=== PATIENT | male | born 1940 | race Two or more races ===

== ENCOUNTER 2017-07-20 17:52 | Observation (INO) | payer MEDICARE, BC ==
[2017-07-20] MEDS ORDERED: ACETAMINOPHEN TAB 325 MG TAB PO PRN (18:33)
[2017-07-20] MEDS ORDERED: NALOXONE 0.4 MG/ML 1 ML VIAL IV PRN ×2 (18:33→21:21)
[2017-07-20] MEDS ORDERED: HEPARIN SODIUM,PORCINE 5,000 UNIT/ML 1 ML VIAL IV PRN (18:35)
--- NOTE | 2017-07-20 18:40 | ED ---
General Adult HPI - General Chief complaint: Chest Pain Stated complaint: N Stemi Time Seen by Provider: 07/20/17 17:55 Source: family, EMS, RN notes reviewed, old records reviewed Mode of arrival: EMS Limitations: no limitations - History of Present Illness Initial comments: 77-year-old male presents as transfer from outside hospital for evaluation of A. fib and elevated troponin. Patient was seen by his primary care physician, noted to be in A. fib. By the time he noted to the outside emergency department he was in sinus rhythm. Laboratory studies were obtained and serial cardiac enzymes which revealed a mild elevation in troponin at 0.045. Patient was given aspirin and started on heparin and transferred for cardiology evaluation. Patient has history of schizophrenic, he is not able to contribute much to the history. He does deny current chest pain. No known history of coronary artery disease or arrhythmia. - Related Data Allergies Allergy/AdvReac Type Severity Reaction Status Date / Time No Known Allergies Allergy Verified 07/20/17 18:19 Review of Systems ROS Statement: Those systems with pertinent positive or pertinent negative responses have been documented in the HPI. ROS Other: All systems not noted in ROS Statement are negative. Past Medical History Past Medical History: Diabetes Mellitus, Hyperlipidemia, Renal Disease, Thyroid Disorder Additional Past Medical History / Comment(s): Anemia History of Any Multi-Drug Resistant Organisms: None Reported Past Surgical History: No Surgical Hx Reported Past Psychological History: Schizophrenia Smoking Status: Never smoker Past Alcohol Use History: None Reported Past Drug Use History: None Reported General Exam Limitations: no limitations General appearance: alert, in no apparent distress Head exam: Present: atraumatic, normocephalic Eye exam: Present: normal appearance Neck exam: Present: normal inspection. Absent: tenderness Respiratory exam: Present: normal lung sounds bilaterally. Absent: respiratory distress Cardiovascular Exam: Present: regular rate, normal rhythm GI/Abdominal exam: Present: soft. Absent: distended, tenderness Extremities exam: Present: normal inspection, normal capillary refill. Absent: pedal edema Neurological exam: Present: alert, oriented X3, CN II-XII intact. Absent: motor sensory deficit Psychiatric exam: Present: normal affect, normal mood Skin exam: Present: warm, dry, intact. Absent: cyanosis, diaphoretic Course Vital Signs 07/20/17 17:55 Temperature 97.4 F L Pulse Rate 89 Respiratory 16 Rate Blood Pressure 156/71 O2 Sat by Pulse 98 Oximetry EKG Findings - EKG Comments: EKG Findings:: EKG: Normal sinus rhythm, ROS R prime, rate of 84, FL interval 126, QRS duration 96, QTC 458, no definitive signs of ischemia Medical Decision Making - Medical Decision Making 77-year-old male presenting with A. fib and mildly elevated troponin. No documented atrial fibrillation in the medical record. Patient is in sinus rhythm here. Laboratory studies were reviewed and the patient did have a mild troponin elevation of 0.045. Potassium 4.2, sodium 144, creatinine 2.0 with no known baseline. Chest x-ray was reviewed and was negative. Patient will be continued on heparin, serial cardiac enzymes will be obtained. Patient will be admitted for cardiology evaluation. He is started on 25 mg of metoprolol twice a day. Disposition Clinical Impression: Elevated troponin, Atrial fibrillation Disposition: ADMITTED IP TO THIS HOSP Condition: Stable Is patient prescribed a controlled substance at d/c from ED?: No Referrals: Wild Baez MD [Primary Care Provider] - 1-2 days Decision to Admit Reason: Admit from EC Decision Date: 07/20/17 Decision Time: 18:40
[2017-07-20] MEDS ORDERED: HEPARIN SODIUM,PORCINE/D5W PMX 25,000 UNIT in DEXTROSE/WATER 1 500ML.BAG IV SCH (18:45)
[2017-07-20] MEDS ORDERED: CALCIUM CARBONATE 500 MG CHEWABLE PO PRN (21:21)
[2017-07-20] MEDS ORDERED: MAGNESIUM HYDROXIDE 2,400 MG/10 ML CUP PO PRN (21:21)
[2017-07-20] MEDS ORDERED: ALPRAZolam 0.25 MG TAB PO PRN (21:21)
[2017-07-20] MEDS ORDERED: LACTULOSE 20 GM/30 ML CUP PO PRN (21:21)
[2017-07-20] MEDS ORDERED: ONDANSETRON 4 MG/2 ML VIAL IVP PRN (21:21)
[2017-07-20] MEDS ORDERED: MELATONIN 3 MG TABLET PO PRN (21:21)
[2017-07-20] MEDS: METOPROLOL TARTRATE 25 MG TAB PO SCH (21:38)
[2017-07-21 01:14] LABS: Creatine Kinase MB 1.2 ng/mL (0.0-2.4)
[2017-07-21 01:35] LABS: Troponin I 0.05 ng/mL (0.000-0.034)
[2017-07-21] MEDS: LEVOTHYROXINE 50 MCG TAB PO SCH (06:09)
[2017-07-21 06:44] LABS: Basophils % (A) 0 %; Eosinophils # (A) 0.3 k/uL (0-0.7); Eosinophils % (A) 4 %; HCT 31.7 % (39.0-53.0); HGB 10.4 gm/dL (13.0-17.5); Lymphocytes # (A) 0.7 k/uL (1.0-4.8); Lymphocytes % (A) 12 %; MCH 31.1 pg (25.0-35.0); MCHC 32.8 g/dL (31.0-37.0); MCV 94.7 fL (80.0-100.0); Mean Platelet Volume 7.4; Monocytes # (A) 0.4 k/uL (0-1.0); Monocytes % (A) 7 %; Neutrophils # (A) 4.5 k/uL (1.3-7.7); Neutrophils % (A) 76 %; Platelet Count 216 k/uL (150-450); RBC 3.34 m/uL (4.30-5.90); RDW 13.4 % (11.5-15.5)
[2017-07-21 06:59] LABS: Albumin 3.5 g/dL (3.5-5.0); Calcium 9.3 mg/dL (8.4-10.2); Magnesium 1.8 mg/dL (1.6-2.3); Total Bilirubin 0.3 mg/dL (0.2-1.3); Total Protein 6.1 g/dL (6.3-8.2)
[2017-07-21 07:34] LABS: Creatine Kinase MB 1.2 ng/mL (0.0-2.4)
[2017-07-21 07:46] LABS: Troponin I 0.037 ng/mL (0.000-0.034)
[2017-07-21] MEDS: METOPROLOL TARTRATE 25 MG TAB PO SCH ×2 (08:14→20:23)
[2017-07-21] MEDS: PALIPERIDONE 6 MG TAB.ER.24 PO SCH (08:14)
[2017-07-21] MEDS: FENOFIBRATE 54 MG TAB PO SCH (08:15)
[2017-07-21] MEDS: TRIHEXYPHENIDYL 2 MG TAB PO SCH (08:15)
[2017-07-21 12:16] LABS: Creatine Kinase MB 1.1 ng/mL (0.0-2.4); Troponin I 0.024 ng/mL (0.000-0.034)
--- NOTE | 2017-07-21 15:44 | HP ---
HISTORY AND PHYSICAL DATE OF SERVICE: 07/21/2017 PRESENTING COMPLAINT: Dizzy. HISTORY OF PRESENTING COMPLAINT: This is a pleasant 77-year-old patient of Dr. Baez. Chronic stable medical conditions include hypertension, hyperlipidemia, hypothyroid, bipolar disorder, schizophrenia, chronic kidney disease. The patient for 3 to 4 days has been feeling tired, rundown, dizzy, lightheaded, decreased appetite, and decided to go down to [facility], where he was found to be in atrial fibrillation with rapid ventricular rate. Heart rate was up to the 140s. Patient's troponin was 0.1, 0.025 at 0.45. Patient was put on IV heparin and subsequently was transferred down here to [facility]. Patient subsequently has converted to sinus rhythm. Feels better. No prior history of the same. No chest pain. REVIEW OF SYSTEMS: CONSTITUTIONAL: Tired. HEENT: Decreased hearing. RESPIRATORY: None. CARDIOVASCULAR: As above. GASTROINTESTINAL: None. GENITOURINARY: None. MUSCULOSKELETAL: Arthritic pain in the joints. DERMATOLOGICAL: None. HEMATOLOGICAL: None. LYMPHATICS: None. PSYCHIATRY: None. NEUROLOGICAL: Occasional tremors in the right hand. PAST MEDICAL HISTORY: 1. Hyperlipidemia. 2. Hypertension. 3. Hypothyroid. 4. Tremors. 5. Bipolar disorder. 6. Schizophrenia. 7. Diverticulosis. 8. Osteoarthritis. 9. Hard of hearing. 10.Chronic kidney disease. PAST SURGICAL HISTORY: 1. Hernia repair. 2. Tonsillectomy. 3. Bilateral inguinal hernia repair. SOCIAL HISTORY: Lives alone. 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 No smoking. No alcohol. FAMILY HISTORY: Leukemia. HOME MEDICATIONS: 1. Pravachol 10 mg at bedtime. 2. Synthroid 50 mcg p.o. daily. 3. Tricor 48 mg p.o. daily. 4. Trihexyphenidyl 5 mg p.o. daily. 5. Invega 6 mg p.o. daily. ALLERGIES: NONE. PHYSICAL EXAMINATION: Temperature 98.2, pulse 60, respiration 16, blood pressure 120/73, pulse ox 98% on room air. GENERAL APPEARANCE: Average build. Sitting up, comfortable. EYES: Pupils equal. Conjunctivae normal. HEENT: External appearance of nose and ears normal. Oral cavity normal. NECK: JVD not raised. Mass not palpable. RESPIRATORY: Effort normal. LUNGS: Fair air entry. CARDIOVASCULAR: First and second sounds normal. No edema. ABDOMEN: Soft, non-tender. Liver and spleen not palpable. LYMPHATIC: No lymph node palpable in neck or axillae. PSYCHIATRY: Alert and oriented x3. Mood and affect low. NEUROLOGICAL: Pupils equal. Cranial nerves grossly intact. Power and sensation grossly intact. INVESTIGATIONS: EKG initially showed atrial fibrillation with rapid ventricular rate. Now patient is in sinus rhythm. Patient's BUN 34, creatinine 2.0. White count 16, hemoglobin 10.4. Troponin 0.05, 0.037, 0.024. ASSESSMENT: 1. New-onset atrial fibrillation with rapid ventricular rate. Patient now reverted to sinus rhythm. 2. Chronic kidney disease, stage III, probably from nephrosclerosis. 3. Normocytic anemia, likely secondary to chronic kidney disease. 4. Essential hypertension. 5. Hyperlipidemia. 6. Hypothyroidism. 7. Bipolar disorder. 8. Schizophrenia. 9. Diverticulosis, asymptomatic. 10.Primary osteoarthritis. 11.IV heparin monitoring. PLAN: Home medications are resumed. Patient is on IV heparin. Cardiology was consulted. Will check patient's iron studies. Care was discussed with the patient. Will order a 2- D echocardiogram. MMODL / IJN: [id number] /
[2017-07-21] MEDS: HEPARIN SODIUM,PORCINE 5,000 UNIT/ML 1 ML VIAL SQ SCH (20:23)
[2017-07-21] MEDS ORDERED: PRAVASTATIN SODIUM 20 MG TAB PO SCH (21:00)
--- NOTE | 2017-07-21 21:33 | CONS ---
CONSULTATION Martín Nixon is a 77-year-old pleasant patient with a history of schizophrenia. Apparently this gentleman was transferred from [facility]. I reviewed the record at [place], including the EKG and rhythm strips. There is no evidence of any atrial fibrillation. Apparently, the ER physician saw atrial fibrillation and transferred to the patient because the rate was fast. I have not seen any rhythm strips, which showed a rapid heart rate. The patient is in a sinus rhythm here at this time and even all the rhythm strips in [facility] that were sent are in sinus mechanism as is the EKG. The patient is not a good historian. Denies any chest pain or shortness of breath. He feels well. Appears to be quite comfortable and asymptomatic. PAST MEDICAL HISTORY: 1. History of hypothyroidism. 2. Bipolar disorder. 3. Hypertension. 4. Hyperlipidemia. 5. No evidence of any prior myocardial infarction or CVA. MEDICATIONS: At home include Pravachol, Synthroid, Tricor and he is also takes Invega. The patient is status post tonsillectomy and inguinal hernia repair. EXAMINATION: Blood pressure is 128/70, pulse rate is 64 per minute and regular. HEENT: Unremarkable. Fundus was not examined by me. NECK: Supple. There is no JVD. I do not hear a carotid bruit. Heart exam reveals S1, S2 heard normally. No significant murmurs. Lungs are clear. Abdomen is soft, nontender. Lower extremities reveal normal pulses. No edema. Central nervous system is normal. EKG revealed sinus mechanism with a right ventricular conduction delay. No acute changes. LABORATORY DATA: Does not reveal any significant abnormalities. Troponins are 0.05 and 0.03, which I do not believe is significant. I am recommending a TSH level. I am recommending that we discontinue IV heparin, place him on subcu heparin. Increase activity. Patient can be discharged and echo performed as an outpatient. No other workup is necessary at this time, but we will continue to monitor him with telemetry till tomorrow morning. Thank you very much for the consult. CRISTIANA / ROBERTA: [id number] /
[2017-07-22] MEDS: LEVOTHYROXINE 50 MCG TAB PO SCH (05:39)
[2017-07-22] MEDS: METOPROLOL TARTRATE 25 MG TAB PO SCH (07:32)
[2017-07-22] MEDS: PALIPERIDONE 6 MG TAB.ER.24 PO SCH (07:32)
[2017-07-22] MEDS: TRIHEXYPHENIDYL 2 MG TAB PO SCH (07:32)
[2017-07-22] MEDS: FENOFIBRATE 54 MG TAB PO SCH (07:33)
[2017-07-22] MEDS: HEPARIN SODIUM,PORCINE 5,000 UNIT/ML 1 ML VIAL SQ SCH (09:37)
[2017-07-22 10:14] LABS: Calcium 9.9 mg/dL (8.4-10.2); Potassium 4.6 mmol/L (3.5-5.1)
[2017-07-22 11:42] VITALS: BP 127/64; PULSE 58; RESP 14; TEMP 98
--- NOTE | 2017-07-22 14:26 | ECHOF ---
Referral Reason:af MEASUREMENTS -------- HEIGHT: 165.1 cm WEIGHT: 61.2 kg BP: IVSd: 1.0 cm (0.6 - 1.1) LVIDd: 3.9 cm (3.9 - 5.3) LVPWd: 0.7 cm (0.6 - 1.1) IVSs: 1.6 cm LVIDs: 3.2 cm LVPWs: 1.5 cm Ao Diam: 3.4 cm (2.0 - 3.7) AV Cusp: 1.9 cm (1.5 - 2.6) LA Diam: 3.2 cm (2.7 - 3.8) MV EXCURSION: 23.601 mm (> 18.000) MV EF SLOPE: 235 mm/s (70 - 150) EPSS: 1.0 cm MV E Wilson: 0.83 m/s MV DecT: 211 ms MV A Wilson: 0.58 m/s MV E/A Ratio: 1.42 AR PHT: 284 ms RAP: 5.00 mmHg RVSP: 29.66 mmHg FINDINGS -------- Sinus rhythm. This was a technically good study. The left ventricular size is normal. Left ventricular wall thickness is normal. Overall left vent ricular systolic function is normal with, an EF between 55 - 60 %. The right ventricle is normal in size and function. The left atrium is normal in size. The right atrium is normal in size. The aortic valve is trileaflet, and appears structurally normal. No aortic stenosis or regurgitation. Trace amount of aortic regurgitation. The mitral valve leaflets are mildly thickened. Nenb-jm-mnwufrzx mitral regurgitation is present , predominately a posteriorly directed jet. Mild tricuspid regurgitation present. The right ventricular systolic pressure, as measured by Doppl er, is 29.66mmHg. Pulmonic valve appears structurally normal. The aortic root size is normal. The pericardium is normal. CONCLUSIONS -------- 1. Sinus rhythm. 2. This was a technically good study. 3. The left ventricular size is normal. 4. Left ventricular wall thickness is normal. 5. Overall left ventricular systolic function is normal with, an EF between 55 - 60 %. 6. The right ventricle is normal in size and function. 7. The left atrium is normal in size. 8. The right atrium is normal in size. 9. The aortic valve is trileaflet, and appears structurally normal. No aortic stenosis or regurgitati on. 10. Trace amount of aortic regurgitation. 11. The mitral valve leaflets are mildly thickened. 12. Kswd-jp-sjfthkwr mitral regurgitation is present. 13. , predominately a posteriorly directed jet. 14. Mild tricuspid regurgitation present. 15. The right ventricular systolic pressure, as measured by Doppler, is 29.66mmHg. 16. Pulmonic valve appears structurally normal. 17. The aortic root size is normal. 18. The pericardium is normal. TOY DEPARTMENT MANAGER: Maria Elena Hassan RDCS
--- NOTE | 2017-07-22 17:37 | DS ---
DISCHARGE SUMMARY DATE OF ADMISSION: July 20, 2017. DATE OF DISCHARGE: July 22, 2017. FINAL DIAGNOSES: 1. Paroxysmal atrial fibrillation, short-lived, back into sinus rhythm. 2. Chronic kidney disease stage 3 from nephrosclerosis. 3. Normocytic anemia likely secondary to chronic kidney disease. 4. Essential hypertension. 5. Hyperlipidemia. 6. Hypothyroidism. 7. Bipolar disorder, chronic. 8. Schizophrenia, chronic. 9. Diverticulosis colonic. Asymptomatic. 10.Primary osteoarthritis. 11.IV heparin monitoring. HOSPITAL COURSE: This patient is sent in from [facility] after the patient was dizzy, lightheaded, found to be in atrial fibrillation, rapid ventricular rate. Small troponin leak. The patient when got here went back into sinus rhythm. Seen by Dr. Julisa Paredes. Decision was made not to anticoagulate because of the patient reverting to sinus rhythm. 2D echo showed preserved LV function. The patient's TSH came back normal. The patient's BUN and creatinine is 31/1.80. Lungs are clear. Cardiovascular 1st and second sounds normal. DISCHARGE MEDICATIONS: 1. Tricor 48 mg a day. 2. Synthroid 50 mcg a day. 3. Invega 6 mg p.o. daily. 4. Pravachol 10 mg q.h.s. 6. 5. Trihexyphenidyl 5 mg p.o. daily. 6. Lopressor 25 p.o. b.i.d. Follow up with Dr. Julisa Paredes in 2 weeks, Dr. Baez in [address] Baez. MMODL / CHEYENNEN: [id number] /
== END 2017-07-22 13:05 | disposition home or self-care (01) ==
LOC: EC 17:52 → 6SEL 18:33
PROVIDERS: ADMIT Hospitalist; ATTEND Hospitalist
DX: I48.0 Paroxysmal atrial fibrillation (principal); I12.9 Hypertensive chronic kidney disease with stage 1 through stage 4 chronic kidney disease, or unspecified chronic kidney disease; N18.3 Chronic kidney disease, stage 3 (moderate); R77.8 Other specified abnormalities of plasma proteins; D63.1 Anemia in chronic kidney disease; F31.9 Bipolar disorder, unspecified; F20.9 Schizophrenia, unspecified; E78.5 Hyperlipidemia, unspecified; E03.9 Hypothyroidism, unspecified; R25.1 Tremor, unspecified; K57.90 Diverticulosis of intestine, part unspecified, without perforation or abscess without bleeding; M19.91 Primary osteoarthritis, unspecified site; H91.90 Unspecified hearing loss, unspecified ear; Z79.890 Hormone replacement therapy; Z79.899 Other long term (current) drug therapy; Z80.6 Family history of leukemia; Z86.39 Personal history of other endocrine, nutritional and metabolic disease
CPT/HCPCS: 99285 ×2; 96365 ×2; 96366 ×4; 96376 ×2; 96372; 93005; 93306; 80053; 80048; 84443; 82550; 82553; 83735; 84484; 85025; 85730; G0378 ×3; J1644 ×2

== ENCOUNTER → 2019-01-22 | Outpatient (CLI) | payer MEDICARE, BC ==
--- NOTE | 2019-01-22 14:54 | MR ---
EXAMINATION TYPE: MR abdomen wo/w con DATE OF EXAM: 01/22/2019 COMPARISON: None HISTORY: Renal mass, Renal Insufficiency CONTRAST: Standard multiplanar, multisequence MRI departmental protocol utilizing 6.5 mL intravenous Gadavist g adolinium contrast. FINDINGS: There is a complex 5.4 x 4.9 x 5.0 cm right lower pole renal mass that exhibits solid components and areas of cystic necrosis. There is avid enhancement of the solid components. This mass has mass effec t on the inferior collecting system of the right kidney. The right renal vein is grossly unremarkable . Additionally there are numerous bilateral renal cysts that do not exhibit enhancement and T2 hyperi ntense. These are likely acquired cysts secondary to the known renal disease. No hydronephrosis of ei ther kidney. The most complex cyst on the left has multiple thin internal septations that do have min imal enhancement. This measures 2.2 x 2.6 x 2.9 cm in the upper pole. There is colonic interposition of the liver. The liver demonstrates no evidence of signal dropout to indicate hepatic steatosis. There is a 4 mm cyst in the posterior right hepatic lobe on T2 axial nonf at sat series 501 image 23 no does not exhibit enhancement. Another punctate nonenhancing cysts as se en on postcontrast series 701 image 386 portal vein appears unremarkable. Gallbladder is partially co ntracted. The spleen, adrenal glands, and bowel appear unremarkable. There are multiple 2-3 mm nonenhancing cys tic lesions in the pancreatic head and body. No dilation of the main pancreatic duct Abdominal aorta is unremarkable. IMPRESSION: 1. Complex 5.4 cm right lower pole renal mass that should be considered renal cell carcinoma until pr oven otherwise. Urology consultation has already been performed. 2. Innumerable bilateral renal cystic lesions, likely acquired from chronic kidney disease. One of th jailyn on the left is slightly complex with multiple thin enhancing septations. Six-month follow-up ultr asound is recommended for this left renal lesion. 3. 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 Annual surveillance is recommended with MR CEBALLOS.
== END | disposition home or self-care (01) ==
LOC: RADMRIMAIN 12:27
PROVIDERS: ATTEND Urology
DX: N28.89 Other specified disorders of kidney and ureter (principal); N28.1 Cyst of kidney, acquired; K86.89 Other specified diseases of pancreas
CPT/HCPCS: 74183; A9585

== ENCOUNTER → 2019-09-08 | Outpatient (CLI) | payer MEDICARE, BC ==
--- NOTE | 2019-09-08 16:58 | MR ---
EXAMINATION TYPE: MR kidney wo/w con DATE OF EXAM: 09/08/2019 COMPARISON: 01/22/2019 HISTORY: 79-year-old male N28.1 Renal cyst. Prior surgery. TECHNIQUE: Multiplanar, multisequence images of the abdomen were obtained before and after administra tion of 6.5 mL intravenous Gadavist gadolinium contrast. FINDINGS: Heart normal size without pericardial effusion. Lung bases clear without pleural effusion. 7 mm cyst posterior right liver lobe. Opposed phase T1-weighted sequences show no evidence for fatty infiltration. Portal venous system is patent. No biliary ductal dilatation. Gallbladder, adrenal glands, and spleen appear within normal limits. 1 cm cystic lesion along the superior pancreatic neck, coronal image 16. This measured 9 mm, previous ly. Innumerable bilateral renal cysts of varying sizes, largest in the posterior upper to mid pole of the left kidney is complex with multiple thin internal septations measuring up to 3.2 cm craniocaudal by 3.0 cm wide by 2.8 cm AP (as measured on coronal and axial T2 series). This previously measured 3.1 x 2.8 x 2.5 cm on 01/22/2019). No significant thickened septal or nodular enhancement. An additional 1.2 cm minimally complex cyst anterior mid right kidney measures 1.2 cm and contains a thin internal septation. Largest simple cyst is present left laterally measuring up to 2.0 cm. There is curvilinear low signal along the lateral lower pole of the right kidney suggesting resection site of the previous lower pole mass seen on 01/22/2019. No suspicious residual enhancement is seen h ere. No upper abdominal lymphadenopathy, ascites fluid, or gross bowel abnormality. IMPRESSION: 1. Interval resection of the previous right lower pole renal mass. There is some artifact relating to surgical change here. No residual abnormal enhancement. 2. The complex septated cyst at the upper to mid pole of the left kidney currently measures 3.2 x 3.0 x 2.8 cm (versus 3.1 x 2.8 x 2.5 cm on 01/22/2019). Minimal interval increase in size. No suspicious nodular or thickened septal enhancement at this time. Continued follow-up is recommended. 3. Additional innumerable bilateral renal cysts of varying sizes. 4. A 1 cm cyst along the superior pancreatic neck previously measured 9 mm. This can also continue to be reassessed at follow-up.
== END ==
LOC: RADMRIMAIN 13:26
PROVIDERS: ATTEND Urology
DX: N28.89 Other specified disorders of kidney and ureter (principal); N28.1 Cyst of kidney, acquired
CPT/HCPCS: 74183; A9585

== ENCOUNTER → 2020-11-05 | Outpatient (CLI) | payer MEDICARE, BC ==
--- NOTE | 2020-11-06 05:41 | MR ---
EXAMINATION TYPE: MR kidney wo/w con DATE OF EXAM: 11/05/2020 COMPARISON: 09/08/2019 HISTORY: Left Renal Cyst CONTRAST: Standard multiplanar, multisequence MRI departmental protocol utilizing 6ml mL intravenous Gadavist g adolinium contrast. There are multiple cysts in both kidneys. The largest is in the upper pole of the left kidney and reid sures 2.8 cm. There is no hydronephrosis. Ureters are not dilated. There is no sign of perinephric fl uid. There is no retroperitoneal adenopathy. There is no evidence of adrenal mass. There is normal en hancement of both kidneys. There is mild renal atrophy. There is no evidence of solid renal mass. The re is no pathologic enhancement. There is no evidence of ascites. There is 10 mm cystic area in the superior aspect of the body of the pancreas without change. IMPRESSION: Multiple renal cysts without change. No suspicious renal mass. Stable pancreatic cyst. No renal solid mass or obstruction.
== END | disposition home or self-care (01) ==
LOC: RADMRIMAIN 14:46
PROVIDERS: ATTEND Urology
DX: N28.1 Cyst of kidney, acquired (principal); K86.2 Cyst of pancreas
CPT/HCPCS: 74183; A9585

== ENCOUNTER 2021-12-01 13:29 | Inpatient (IN) | payer MEDICARE, BC ==
[2021-12-01] MEDS ORDERED: ASPIRIN 81 MG PO STA (13:40)
[2021-12-01] MEDS ORDERED: DILTIAZEM DRIP BOLUS FROM BAG 1 MG SOLN IV ONE (13:40)
[2021-12-01] MEDS ORDERED: DILTIAZEM 125 MG in SODIUM CHLORIDE 0.9% 100 ML IV SCH (13:45)
[2021-12-01] MEDS ORDERED: HEPARIN SODIUM 1,000 UN/ML (10ML VL) IV ONE (13:55)
[2021-12-01] MEDS ORDERED: HEPARIN SODIUM 1,000 UN/ML (10ML VL) IV PRN (13:55)
--- NOTE | 2021-12-01 14:01 | ED ---
General Adult HPI - General Chief complaint: Chest Pain Stated complaint: A-FIB Time Seen by Provider: 12/01/21 13:31 Source: patient, EMS, RN notes reviewed Mode of arrival: EMS Limitations: no limitations - History of Present Illness Initial comments: 81-year-old male presents emergency department via EMS for evaluation of new onset atrial fibrillation. Patient went to the PCP for regular checkup. Patient has no signs last few days she's had some palpitations, recent is her. Patient denies any associated pain. Patient has no history of A. fib. Patient denies any current headache dizziness no recent falls denies any blood thinners no abdominal pain that she does feel short of breath at times, mild weakness. - Related Data Home Medications Medication Instructions Recorded Confirmed Fenofibrate Nanocrystallized 48 mg PO DAILY 07/20/17 07/20/17 [Tricor] Levothyroxine Sodium [Synthroid] 50 mcg PO DAILY 07/20/17 07/20/17 Paliperidone [Invega] 6 mg PO DAILY 07/20/17 07/20/17 Pravastatin Sodium [Pravachol] 10 mg PO HS 07/20/17 07/20/17 Trihexyphenidyl HCl 5 mg PO DAILY 07/20/17 07/20/17 Previous Rx's Medication Instructions Recorded Metoprolol Tartrate [Lopressor] 25 mg PO BID #60 tab 07/22/17 Allergies Allergy/AdvReac Type Severity Reaction Status Date / Time No Known Allergies Allergy Verified 12/01/21 13:42 Review of Systems ROS Statement: Those systems with pertinent positive or pertinent negative responses have been documented in the HPI. ROS Other: All systems not noted in ROS Statement are negative. Past Medical History Past Medical History: Hyperlipidemia, Hypertension, Pneumonia, Renal Disease, Thyroid Disorder Additional Past Medical History / Comment(s): rt side dominant, tremors, "heart rate up at times", beginnings of cataracats. bipolar, scizophrenia, diverticular disease, arthrits, telida. 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 History of Any Multi-Drug Resistant Organisms: None Reported Past Surgical History: Hernia Repair, Tonsillectomy Additional Past Surgical History / Comment(s): austyn inguinal hernia repair Past Anesthesia/Blood Transfusion Reactions: No Reported Reaction Past Psychological History: Bipolar, Schizophrenia Smoking Status: Never smoker Past Alcohol Use History: None Reported Past Drug Use History: None Reported - Past Family History Father Family Medical History: Cancer Additional Family Medical History / Comment(s): leukemia Mother Family Medical History: Diabetes Mellitus General Exam Limitations: no limitations General appearance: alert, in no apparent distress Head exam: Present: atraumatic, normocephalic, normal inspection Eye exam: Present: normal appearance, PERRL, EOMI. Absent: scleral icterus, conjunctival injection, periorbital swelling ENT exam: Present: normal exam, mucous membranes moist Neck exam: Present: normal inspection. Absent: tenderness, meningismus, lymphadenopathy Respiratory exam: Present: normal lung sounds bilaterally. Absent: respiratory distress, wheezes, rales, rhonchi, stridor Cardiovascular Exam: Present: tachycardia, irregular rhythm, normal heart sounds. Absent: regular rate, normal rhythm, systolic murmur, diastolic murmur, rubs, gallop, clicks Neurological exam: Present: alert Skin exam: Present: warm, dry, intact, normal color. Absent: rash Course Vital Signs 12/01/21 13:39 Temperature 97.9 F Pulse Rate 158 H Respiratory 18 Rate Blood Pressure 138/93 O2 Sat by Pulse 96 Oximetry Medical Decision Making - Medical Decision Making 81-year-old female presented for new-onset A. fib ablation patient's found to be in A. fib RVR. Patient was started on Cardizem bolus, infusion along with heparin. Patient has not had any recent injuries no rectal bleeding. Patient will be admitted for cardiology evaluation, further treatment and monitoring. Disposition Clinical Impression: Atrial fibrillation with RVR Disposition: ADMITTED IP TO THIS HOSP Condition: Fair Referrals: None,Stated [Primary Care Provider] - 1-2 days Time of Disposition: 14:04
[2021-12-01] MEDS ORDERED: NITROGLYCERIN SL TABS 0.4 MG TAB SUBLINGUAL PRN (14:04)
[2021-12-01 14:13] LABS: Basophils % (A) 1 %; Eosinophils # (A) 0.1 k/uL (0-0.7); Eosinophils % (A) 3 %; HCT 34.2 % (39.0-53.0); HGB 11.8 gm/dL (13.0-17.5); Lymphocytes # (A) 0.8 k/uL (1.0-4.8); Lymphocytes % (A) 15 %; MCH 32.5 pg (25.0-35.0); MCHC 34.6 g/dL (31.0-37.0); MCV 93.9 fL (80.0-100.0); Mean Platelet Volume 7.4; Monocytes # (A) 0.3 k/uL (0-1.0); Monocytes % (A) 6 %; Neutrophils # (A) 4.1 k/uL (1.3-7.7); Neutrophils % (A) 74 %; Platelet Count 237 k/uL (150-450); RBC 3.64 m/uL (4.30-5.90); RDW 12.6 % (11.5-15.5); WBC 5.5 k/uL (3.8-10.6)
[2021-12-01 14:33] LABS: Albumin 4.1 g/dL (3.5-5.0); Calcium 9.4 mg/dL (8.4-10.2); Magnesium 1.9 mg/dL (1.6-2.3); Potassium 4.3 mmol/L (3.5-5.1); Total Bilirubin 0.5 mg/dL (0.2-1.3); Total Protein 6.9 g/dL (6.3-8.2)
[2021-12-01 14:37] LABS: INR 1.2 (<1.2); Prothrombin Time 12.2 sec (9.0-12.0)
--- NOTE | 2021-12-01 14:42 | XR ---
EXAMINATION TYPE: XR chest 2V DATE OF EXAM: 12/01/2021 2:37 PM COMPARISON: None TECHNIQUE: XR chest 2V Frontal and lateral views of the chest. CLINICAL INDICATION:Male, 81 years old with history of dysrhythmia; FINDINGS: Lungs/Pleura: There is no evidence of pleural effusion, focal consolidation, or pneumothorax. Senesc ent parenchymal changes. Pulmonary vascularity: Unremarkable. Heart/mediastinum: Cardiomediastinal silhouette is unremarkable. Musculoskeletal: No acute osseous pathology. IMPRESSION: No acute cardiopulmonary disease/process.
[2021-12-01] MEDS: HEPARIN SOD,PORK IN 0.45% NACL 25,000 UNIT in 0.45% NACL 1 250ML.BAG IV SCH (15:15)
[2021-12-01 15:21] LABS: Partial Thromboplastin Time 20.7 sec (22.0-30.0)
--- NOTE | 2021-12-01 20:20 | P.HPIM ---
History of Present Illness H&P Date: 12/01/21 Chief Complaint: Chest tightness Patient is a 81-year-old male with a known history of hypertension, hyperlipidemia, history of renal mass s/p surgery, hypothyroidism and bipo lar/schizophrenia was brought to the hospital due to complaints of chest pain. Patient states that he developed left retrosternal chest tightness and pain across the chest associated with shortness of breath today morning. Patient has been having symptoms of heart racing of the past on and off. Patient went to PCP for regular checkup. Patient was found to have atrial fibrillation and was sent to ER. Otherwise patient denied any headache. No dizziness or lightheadedness. No recent falls. No leg swelling. 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 Further details not known at this time. No prior cardiac catheterization history. Laboratory data showed WBC 5.4 hemoglobin 11.8 and platelets 237 INR 1.2 Sodium 141 potassium 4.3 chloride 106 BUN 38 and creatinine 2.31 Troponin 0.012, 0.027 and 0.042 Liver enzymes are not elevated EKG showed atrial fibrillation with rapid regular rate heart rate 142 Chest x-ray showed no acute cardiopulmonary process. Review of Systems Constitutional: Patient denies any fever or chills . Does have generalized weakness. Abdomen: Patient denied any nausea or vomiting or abd. pain Cardiovascular: Patient complains of chest tightness across the chest. Associated shortness of breath and palpitations. No leg swelling. Respiratory: patient denied any cough . no sputum production. Positive for shortness of breath Neurologic: Patient denied any numbness or tingling headache. Musculoskeletal: Patient denies any complaints of joint swelling or deformity. Skin: Negative Psychiatric: Negative Endocrine: No heat or cold intolerance. No recent weight gain. Genitourinary: No dysuria or hematuria. All other 14 point ROS negative except the above Past Medical History Past Medical History: Atrial Fibrillation, Hyperlipidemia, Hypertension, Pneumonia, Renal Disease, Thyroid Disorder Additional Past Medical History / Comment(s): rt side dominant, tremors, "heart rate up at times", beginnings of cataracats. bipolar, scizophrenia, diverticular disease, arthrits, [place]. pt stated he ahs ahd a pne vaccine in past,development writer unable to verify date of vaccine at time of this admit. History of Any Multi-Drug Resistant Organisms: None Reported Past Surgical History: Hernia Repair, Tonsillectomy Additional Past Surgical History / Comment(s): austyn inguinal hernia repair Past Anesthesia/Blood Transfusion Reactions: No Reported Reaction Smoking Status: Never smoker - Past Family History Father Family Medical History: Cancer Additional Family Medical History / Comment(s): leukemia Mother Family Medical History: Diabetes Mellitus Medications and Allergies Home Medications Medication Instructions Recorded Confirmed Type Fenofibrate Nanocrystallized 48 mg PO DAILY 07/20/17 12/01/21 History [Tricor] Levothyroxine Sodium [Synthroid] 50 mcg PO DAILY 07/20/17 12/01/21 History Pravastatin Sodium [Pravachol] 10 mg PO HS 07/20/17 12/01/21 History Trihexyphenidyl HCl 5 mg PO BID 07/20/17 12/01/21 History Paliperidone IM [Invega Sustenna] 234 mg IM QMONTHLY 12/01/21 12/01/21 History Paliperidone [Invega] 3 mg PO DAILY 12/01/21 12/01/21 History Allergies Allergy/AdvReac Type Severity Reaction Status Date / Time No Known Allergies Allergy Verified 12/01/21 14:58 Physical Exam Vitals: Vital Signs Temp Pulse Pulse Resp BP BP Pulse Ox 12/01/21 16:45 98.3 F 88 16 100/63 98 12/01/21 16:10 89 18 109/67 96 12/01/21 13:39 97.9 F 158 H 18 138/93 96 Intake and Output 12/01/21 12/01/21 12/01/21 06:59 14:59 22:59 Other: Weight 135 kg 55 kg PHYSICAL EXAMINATION: Patient is lying in the bed comfortably, no acute distress, awake alert and oriented. Able to communicate slowly.. HEENT: Normocephalic. Neck is supple. Pupils reactive. Nostrils clear. Oral cavity is moist. Neck reveals no JVD, carotid bruits, or thyromegaly. CHEST EXAMINATION: Trachea is central. Symmetrical expansion. Lung ingram clear to auscultation and percussion. CARDIAC: Normal S1, S2 with no gallops. No murmurs. Irregular Seelig rhythm. ABDOMEN: Soft. Bowel sounds present. Nontender. No organomegaly. No abdominal bruits. Extremities: reveal no edema. No clubbing or cyanosis Neurologically awake, alert, oriented x3 with well-coordinated movements. No gross focal deficits noted. Able to move all his extremities while in bed. Skin: No rash or skin lesions. Psychiatric: Coperative. Nonsuicidal, Musculoskeletal: No joint swelling or deformity. Results CBC & Chem 7: 12/01/21 13:51 12/01/21 13:51 Labs: Abnormal Lab Results - Last 24 Hours (Table) 12/01/21 12/01/21 12/01/21 Range/Units 13:51 13:51 13:51 RBC 3.64 L (4.30-5.90) m/uL Hgb 11.8 L (13.0-17.5) gm/dL Hct 34.2 L (39.0-53.0) % Lymphocytes # 0.8 L (1.0-4.8) k/uL PT 12.2 H (9.0-12.0) sec INR 1.2 H (<1.2) APTT 20.7 L (22.0-30.0) sec BUN 38 H (9-20) mg/dL Creatinine 2.31 H (0.66-1.25) mg/dL Thrombosis Risk Factor Assmnt - DVT/VTE Prophylaxis DVT/VTE Prophylaxis: Pharmacologic Prophylaxis ordered - Choose All That Apply Any of the Below Risk Factors Present?: No Other Risk Factors: Yes Each Risk Factor Represents 3 Points: Age 75 years or older Other congenital or acquired thrombophilia - If yes, enter type in comment: No Thrombosis Risk Factor Assessment Total Risk Factor Score: 3 Thrombosis Risk Factor Assessment Level: Moderate Risk Assessment and Plan Assessment: New onset atrial fibrillation Chest tightness and shortness of breath. Elevated troponin level. Possible NSTEMI cannot be excluded. No prior history of cardiac catheterization. Acute kidney injury with creatinine level 2.31 with possible underlying CKD stage III. Baseline creatinine not known Hypertension Hypothyroidism Hyperlipidemia History of renal mass status post surgery several years ago Bipolar/schizophrenia Osteoarthritis DVT prophylaxis patient is already on heparin drip Plan: Patient will be continued on telemetry monitoring. Monitor serial EKG and troponin x3. Continue with heparin drip and Cardizem drip for heart rate control. TSH level was ordered. Continue with home medications including levothyroxine and statins. Follow-up closely. Discussed with his niece at bedside in detail. Time with Patient: Greater than 30
[2021-12-01] MEDS: TRIHEXYPHENIDYL 2 MG TAB PO SCH (20:53)
[2021-12-01] MEDS: PRAVASTATIN SODIUM 20 MG TAB PO SCH (20:53)
[2021-12-02] MEDS: LEVOTHYROXINE 50 MCG TAB PO SCH (06:41)
[2021-12-02 07:22] LABS: African American GFR (CKD) 29 (>60 ml/min/1.73 sqM); Anion Gap 7 mmol/L; Blood Urea Nitrogen 41 mg/dL (9-20); Calcium 8.6 mg/dL (8.4-10.2); Carbon Dioxide 24 mmol/L (22-30); Chloride 109 mmol/L (98-107); Glucose 101 mg/dL (74-99); Non-African American GFR(CKD) 25 (>60 ml/min/1.73 sqM); Potassium 4.3 mmol/L (3.5-5.1); Sodium 140 mmol/L (137-145)
[2021-12-02 07:54] LABS: Basophils % (A) 1 %; Eosinophils # (A) 0.2 k/uL (0-0.7); Eosinophils % (A) 5 %; HGB 10.4 gm/dL (13.0-17.5); Lymphocytes # (A) 0.9 k/uL (1.0-4.8); Lymphocytes % (A) 24 %; MCHC 33.5 g/dL (31.0-37.0); MCV 95.5 fL (80.0-100.0); Mean Platelet Volume 7.8; Monocytes # (A) 0.3 k/uL (0-1.0); Monocytes % (A) 8 %; Neutrophils # (A) 2.3 k/uL (1.3-7.7); Neutrophils % (A) 59 %; Platelet Count 218 k/uL (150-450); RBC 3.24 m/uL (4.30-5.90); RDW 13.1 % (11.5-15.5); WBC 3.9 k/uL (3.8-10.6)
[2021-12-02 08:07] LABS: INR 1.2 (<1.2); Prothrombin Time 12.8 sec (9.0-12.0)
[2021-12-02] MEDS ORDERED: ASPIRIN 325 MG TAB PO SCH (09:00)
[2021-12-02] MEDS: TRIHEXYPHENIDYL 2 MG TAB PO SCH ×2 (10:22→20:15)
[2021-12-02] MEDS: METOPROLOL TARTRATE 12.5 MG TAB PO SCH ×2 (10:22→20:15)
[2021-12-02 10:54] LABS: HDL Cholesterol 61.2 mg/dL (40.00-60.00); Triglycerides 40.5 mg/dL (0.00-149.00)
[2021-12-02 11:06] LABS: Chol/HDL Ratio 2.12 Ratio; LDL Cholesterol,Direct Reflex 53.3 mg/dL (0.00-129.00)
[2021-12-02] MEDS: PALIPERIDONE 3 MG TAB.ER.24 PO SCH (11:16)
[2021-12-02] MEDS: FENOFIBRATE 54 MG TAB PO SCH (11:17)
--- NOTE | 2021-12-02 12:09 | P.CRDCN ---
History of Present Illness History of present illness: This is Dr. Monroy dictating an H/P on this patient The patient was interviewed and examined IMPRESSION / ASSESSMENT: Paroxysmal symptomatic atrial fibrillation, no syncope Back in sinus rhythm Dyslipidemia and hypertriglyceridemia Possible mild Sick Sinus Syndrome PLAN: Start low-dose metoprolol tartrate 2.5 mg by mouth twice a day Avoid antiarrhythmic drug therapy I will discuss the issue of anticoagulation long-term with his niece was with him in the room when I examined him HPI 81-year-old male patient who has been treated for psychiatric conditions Presented with shortness of breath dizziness possible mild chest discomfort Agent is unable to give a history but when I questioned him carefully he did have the above-mentioned symptoms He feels great now When he was admitted he had A. fib with RVR He is back in sinus rhythm now ROS: No fever chills or rigors, no cough, phlegm or expectoration, no nausea, vomiting or diarrhea, no hematuria, dysuria, no musculoskeletal complaints, no strokes or seizures, no skin lesions. EXAMINATION: REVIEW OF LABS, ECG & MEDICAL DATA His medications include fenofibrate, levothyroxine him a Pravachol and other psychiatric medications Previously he was on metoprolol 25 mg twice daily Twelve-lead EKG in sinus rhythm shows sinus mechanism 62 beats a minute Right bundle branch block pattern normal QT interval normal ST segments Twelve-lead EKG during atrial fibrillation shows heart rates of 143 beats a minute Past Medical History Past Medical History: Atrial Fibrillation, Hyperlipidemia, Hypertension, Pneumonia, Renal Disease, Thyroid Disorder Additional Past Medical History / Comment(s): rt side dominant, tremors, "heart rate up at times", beginnings of cataracats. bipolar, scizophrenia, diverticular disease, arthrits, [place]. pt stated he ahs ahd a pne vaccine in past,card writer hand unable to verify date of vaccine at time of this admit. History of Any Multi-Drug Resistant Organisms: None Reported Past Surgical History: Hernia Repair, Tonsillectomy Additional Past Surgical History / Comment(s): austyn inguinal hernia repair Past Anesthesia/Blood Transfusion Reactions: No Reported Reaction Smoking Status: Never smoker - Past Family History Father Family Medical History: Cancer Additional Family Medical History / Comment(s): leukemia Mother Family Medical History: Diabetes Mellitus Medications and Allergies Home Medications Medication Instructions Recorded Confirmed Type Fenofibrate Nanocrystallized 48 mg PO DAILY 06/01/18 10/13/22 History [Tricor] Levothyroxine Sodium [Synthroid] 50 mcg PO DAILY 07/20/17 12/01/21 History Pravastatin Sodium [Pravachol] 10 mg PO HS 07/20/17 12/01/21 History Trihexyphenidyl HCl 5 mg PO BID 07/20/17 12/01/21 History Paliperidone IM [Invega Sustenna] 234 mg IM QMONTHLY 12/01/21 12/01/21 History Paliperidone [Invega] 3 mg PO DAILY 12/01/21 12/01/21 History Allergies Allergy/AdvReac Type Severity Reaction Status Date / Time No Known Allergies Allergy Verified 12/01/21 14:58 Physical Exam Vitals: Vital Signs Temp Pulse Pulse Resp BP BP Pulse Ox 12/02/21 11:18 98.4 F 72 17 135/74 97 12/02/21 08:00 98.1 F 72 17 119/64 95 12/02/21 04:30 97.9 F 63 16 117/62 97 12/01/21 23:10 98.1 F 67 17 100/56 97 12/01/21 19:55 98 F 68 16 98/53 98 12/01/21 16:45 98.3 F 88 16 100/63 98 12/01/21 16:10 89 18 109/67 96 12/01/21 13:39 97.9 F 158 H 18 138/93 96 Intake and Output 12/01/21 12/02/21 12/02/21 22:59 06:59 14:59 Intake Total 82.673 65.163 Output Total 250 350 250 Balance -167.327 -350 -184.837 Intake: Intake, IV Titration 82.673 65.163 Amount Diltiazem 125 mg In 20.667 Sodium Chloride 0.9% 100 ml @ 5 MG/HR 5 mls/hr IV .Q24H MATHEW Rx#:[id number] Heparin Sod,Pork in 0.45% 62.006 65.163 NaCl 25,000 unit In 0.45 % NaCl 1 250ml.bag @ 7. 408 UNITS/KG/HR 10.001 mls/hr IV .Q24H MATHEW Rx#: [id number] Output: Urine 250 350 250 Other: Voiding Method Urinal Urinal Urinal Weight 55 kg Results 12/02/21 06:29 12/02/21 06:29 Cardiac Enzymes 12/01/21 12/01/21 12/01/21 Range/Units 13:51 13:51 17:09 AST 25 (17-59) U/L Troponin I <0.012 0.027 (0.000-0.034) ng/mL 12/01/21 Range/Units 19:48 AST (17-59) U/L Troponin I 0.042 H* (0.000-0.034) ng/mL Coagulation 12/01/21 12/01/21 12/02/21 Range/Units 13:51 19:48 06:29 PT 12.2 H 12.8 H (9.0-12.0) sec APTT 20.7 L 153.1 H* 76.0 H (22.0-30.0) sec Lipids 12/02/21 Range/Units 06:29 Triglycerides 40.50 (0.00-149.00) mg/dL Cholesterol 130.00 (0.00-200.00) mg/dL HDL Cholesterol 61.20 H (40.00-60.00) mg/dL Cholesterol/HDL Ratio 2.12 Ratio CBC 12/01/21 12/02/21 Range/Units 13:51 06:29 WBC 5.5 3.9 (3.8-10.6) k/uL RBC 3.64 L 3.24 L (4.30-5.90) m/uL Hgb 11.8 L 10.4 L (13.0-17.5) gm/dL Hct 34.2 L 31.0 L (39.0-53.0) % Plt Count 237 218 (150-450) k/uL Comprehensive Metabolic Panel 12/01/21 12/02/21 12/02/21 Range/Units 13:51 06:29 06:29 Sodium 141 Cancelled 140 (137-145) mmol/L Potassium 4.3 Cancelled 4.3 (3.5-5.1) mmol/L Chloride 106 Cancelled 109 H (98-107) mmol/L Carbon Dioxide 22 Cancelled 24 (22-30) mmol/L BUN 38 H Cancelled 41 H (9-20) mg/dL Creatinine 2.31 H Cancelled 2.37 H (0.66-1.25) mg/dL Glucose 96 Cancelled 101 H (74-99) mg/dL Calcium 9.4 Cancelled 8.6 (8.4-10.2) mg/dL AST 25 (17-59) U/L ALT 18 (4-49) U/L Alkaline Phosphatase 44 (38-126) U/L Total Protein 6.9 (6.3-8.2) g/dL Albumin 4.1 (3.5-5.0) g/dL Current Medications Generic Name Dose Route Start Last Admin Trade Name Freq PRN Reason Stop Dose Admin Fenofibrate 54 mg 12/02/21 09:00 12/02/21 11:17 Fenofibrate 54 Mg Tab PO 54 mg DAILY MATHEW Administration Heparin Sodium (Porcine) 0 unit 12/01/21 13:55 Heparin Sodium 1,000 Un/Ml (10ml Vl) IV PER PROTOCOL PRN Low PTT Protocol Heparin Sodium/Sodium Chloride 250 mls @ 10.001 mls/hr 12/01/21 14:00 12/02/21 09:30 25,000 unit/ Sodium Chloride IV 2.93 units/kg/hr .Q24H MATHEW 3.951 mls/hr Titration Protocol 7.408 UNITS/KG/HR Levothyroxine Sodium 50 mcg 12/02/21 06:30 12/02/21 06:41 Levothyroxine 50 Mcg Tab PO 50 mcg DAILY@0630 MATHEW Administration Metoprolol Tartrate 12.5 mg 12/02/21 10:00 12/02/21 10:22 Metoprolol Tartrate 12.5 Mg Tab PO 12.5 mg BID MATHEW Administration Nitroglycerin 0.4 mg 12/01/21 14:04 Nitroglycerin Sl Tabs 0.4 Mg Tab SUBLINGUAL Q5M PRN Chest Pain Paliperidone 3 mg 12/02/21 10:00 12/02/21 11:16 Paliperidone 3 Mg Tab.Er.24 PO 3 mg DAILY MATHEW Administration Pravastatin Sodium 10 mg 12/01/21 21:00 12/01/21 20:53 Pravastatin Sodium 20 Mg Tab PO 10 mg HS MATHEW Administration Trihexyphenidyl HCl 5 mg 12/01/21 21:00 12/02/21 10:22 Trihexyphenidyl 2 Mg Tab PO 5 mg BID MATHEW Administration Intake and Output 12/01/21 12/02/21 12/02/21 22:59 06:59 14:59 Intake Total 82.673 65.163 Output Total 250 350 250 Balance -167.327 -350 -184.837 Intake: Intake, IV Titration 82.673 65.163 Amount Diltiazem 125 mg In 20.667 Sodium Chloride 0.9% 100 ml @ 5 MG/HR 5 mls/hr IV .Q24H MATHEW Rx#:[id number] Heparin Sod,Pork in 0.45% 62.006 65.163 NaCl 25,000 unit In 0.45 % NaCl 1 250ml.bag @ 7. 408 UNITS/KG/HR 10.001 mls/hr IV .Q24H MATHEW Rx#: [id number] Output: Urine 250 350 250 Other: Voiding Method Urinal Urinal Urinal Weight 55 kg 12/02/21 06:29 12/02/21 06:29
--- NOTE | 2021-12-02 13:19 | CA ---
Transthoracic Echo Report Name: Martín Nixon Age: 81 Gender: M : 1940 Exam Date: 12/02/2021 08:59 Exam Location: Given Echo Ht (in): 65 Wt (lb): 121 Ordering Physician: Aditya Lucero Attending/Referring Phys: [id number], Jazmine Medical Insurance Claims Specialist Alexa Avalos RDCS Procedure CPT: Indications: afib Cardiac Hx: Technical Quality: Contrast 1: Total Dose (mL): Contrast 2: Total Dose (mL): MEASUREMENTS (Male / Female) Normal Values 2D ECHO LV Diastolic Diameter PLAX 4.2 cm 4.2 - 5.9 / 3.9 - 5.3 cm LV Systolic Diameter PLAX 2.6 cm IVS Diastolic Thickness 0.9 cm 0.6 - 1.0 / 0.6 - 0.9 cm LVPW Diastolic Thickness 0.9 cm 0.6 - 1.0 / 0.6 - 0.9 cm LV Relative Wall Thickness 0.4 RV Internal Dim ED PLAX 2.7 cm LA Systolic Diameter LX 3.1 cm 3.0 - 4.0 / 2.7 - 3.8 cm M-MODE Aortic Root Diameter MM 2.8 cm LA Systolic Diameter MM 3.1 cm LA Ao Ratio MM 1.1 MV E Point Septal Separation 0.8 cm AV Cusp Separation MM 1.7 cm DOPPLER MV Area PHT 3.8 cm??? Mitral E Point Velocity 56.6 cm/s Mitral A Point Velocity 51.2 cm/s Mitral E to A Ratio 1.1 MV Deceleration Time 197.4 ms MV E' Velocity 10.7 cm/s Mitral E to MV E' Ratio 5.3 TR Peak Velocity 244.9 cm/s TR Peak Gradient 24.0 mmHg Right Ventricular Systolic Press 29.0 mmHg FINDINGS Left Ventricle Normal left ventricular size, wall thickness, systolic function with no obvious regional wall motion abnormalities. Left ventricular ejection fraction is estimated at 50-55%. Right Ventricle The right ventricle is normal in size and function. Right Atrium The right atrium is normal in size. Left Atrium The left atrium is normal in size. Mitral Valve Structurally normal mitral valve without significant stenosis or prolapse. There is mild mitral regurgitation. Aortic Valve Structurally normal aortic valve without significant sclerosis or stenosis. There is no aortic regurgitation. Tricuspid Valve Structurally normal tricuspid valve without significant stenosis. Pulmonary artery systolic pressure is normal. Pulmonic Valve Structurally normal pulmonic valve without significant stenosis. There is no pulmonic regurgitation. Pericardium Normal pericardium without effusion. Aorta Normal aortic root dimension. CONCLUSIONS Left ventricular ejection fraction 50-55% Mild mitral regurgitation Normal RVSP Previewed by: Dr. Jc Snyder DO (Electronically Signed) Final Date: 02 December 2021 13:18
--- NOTE | 2021-12-02 15:53 | P.PN ---
Subjective Progress Note Date: 12/02/21 Patient is a 81-year-old male with a known history of hypertension, hyperlipidemia, history of renal mass s/p surgery, hypothyroidism and bipolar/schizophrenia was brought to the hospital due to complaints of chest pain. Patient states that he developed left retrosternal chest tightness and pain across the chest associated with shortness of breath today morning. Patient has been having symptoms of heart racing of the past on and off. Patient went to PCP for regular checkup. Patient was found to have atrial fibrillation and was sent to ER. Otherwise patient denied any headache. No dizziness or lightheadedness. No recent falls. No leg swelling. 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 Further details not known at this time. No prior cardiac catheterization history. Laboratory data showed WBC 5.4 hemoglobin 11.8 and platelets 237 INR 1.2 Sodium 141 potassium 4.3 chloride 106 BUN 38 and creatinine 2.31 Troponin 0.012, 0.027 and 0.042 Liver enzymes are not elevated EKG showed atrial fibrillation with rapid regular rate heart rate 142 Chest x-ray showed no acute cardiopulmonary process. 12/02/2021 Patient is seen and evaluated in follow-up this morning being followed by cardiology and patient has been on Cardizem drip although discontinued and patient was started on metoprolol. Patient continues on IV heparin and will need to discuss with cardiology about possible anticoagulation. 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 Patient reports he lives by himself. 2-D echo was also ordered and pending at this time. Kidney functions remain elevated and recommend repeat labs in the morning. Patient is afebrile denies chest pain or shortness of breath. Patient denies any palpitations. Patient reports to tolerating diet with no reports of nausea or vomiting noted. Review of systems: Constitutional: No reports of fatigue, fever, or chills Cardiovascular: No reports of chest pain or palpitations Respiratory: No reports of shortness of breath or cough GI: No reports of nausea, vomiting, or diarrhea : No reports of dysuria or retention Neurovascular: No reports of weakness or numbness All medications have been reviewed Active Medications Fenofibrate (Fenofibrate 54 Mg Tab) 54 mg PO DAILY [facility] Last Admin: 12/02/21 11:17 Dose: 54 mg Heparin Sodium (Porcine) (Heparin Sodium 1,000 Un/Ml (10ml Vl)) 0 unit IV PER PROTOCOL PRN; Protocol PRN Reason: Low PTT Heparin Sodium/Sodium Chloride (25,000 unit/ Sodium Chloride) 250 mls @ 10.001 mls/hr IV .Q24H [facility]; Protocol Last Titration: 12/02/21 09:30 Dose: 2.93 units/kg/hr, 3.951 mls/hr Levothyroxine Sodium (Levothyroxine 50 Mcg Tab) 50 mcg PO DAILY@0630 [facility] Last Admin: 12/02/21 06:41 Dose: 50 mcg Metoprolol Tartrate (Metoprolol Tartrate 12.5 Mg Tab) 12.5 mg PO BID [facility] Last Admin: 12/02/21 10:22 Dose: 12.5 mg Nitroglycerin (Nitroglycerin Sl Tabs 0.4 Mg Tab) 0.4 mg SUBLINGUAL Q5M PRN PRN Reason: Chest Pain Paliperidone (Paliperidone 3 Mg Tab.Er.24) 3 mg PO DAILY [facility] Last Admin: 12/02/21 11:16 Dose: 3 mg Pravastatin Sodium (Pravastatin Sodium 20 Mg Tab) 10 mg PO HS [facility] Last Admin: 12/01/21 20:53 Dose: 10 mg Trihexyphenidyl HCl (Trihexyphenidyl 2 Mg Tab) 5 mg PO BID [facility] Last Admin: 12/02/21 10:22 Dose: 5 mg PHYSICAL EXAMINATION: Patient is lying in the bed comfortably, no acute distress, awake alert and oriented. Able to communicate slowly.. HEENT: Normocephalic. Neck is supple. Pupils reactive. Nostrils clear. Oral cavity is moist. Neck reveals no JVD, carotid bruits, or thyromegaly. CHEST EXAMINATION: Trachea is central. Symmetrical expansion. Lung ingram clear to auscultation and percussion. CARDIAC: Normal S1, S2 with no gallops. No murmurs. Irregular Seelig rhythm. ABDOMEN: Soft. Bowel sounds present. Nontender. No organomegaly. No abdominal bruits. Extremities: reveal no edema. No clubbing or cyanosis Neurologically awake, alert, oriented x3 with well-coordinated movements. No gross focal deficits noted. Able to move all his extremities while in bed. Skin: No rash or skin lesions. Psychiatric: Cooperative. Non-suicidal, Musculoskeletal: No joint swelling or deformity. Assessment: New onset atrial fibrillation with RVR Chest tightness and shortness of breath. Resolved Elevated troponin level. Possible NSTEMI cannot be excluded. No prior history of cardiac catheterization. Acute kidney injury with creatinine level 2.31 with possible underlying CKD stage III. Baseline creatinine not known Hypertension Hypothyroidism Hyperlipidemia History of renal mass status post surgery several years ago Bipolar/schizophrenia Osteoarthritis DVT prophylaxis patient is already on heparin drip Plan: Patient will be continued on telemetry monitoring. Monitor serial EKG and troponin x3. 2-D echo shows normal LV size with no obvious regional wall motion abnormalities and EF is estimated at 50-55%. Mild mitral regurgitation.. Cardiology following and Cardizem drip was discontinued and patient was started on metoprolol. Patient continues on heparin and will need to discuss further with cardiology about anticoagulation. Discussed with case management about possibly verifying anticoagulation coverage and she discuss with his pharmacy who provides all of his medications in blister packs and are not available to distribute this over the weekend. Patient is not medically clear at this time and cardiology recommending closely observing on telemetry monitoring with follow-up in the a.m. Will follow-up with labs and continue to monitor closely. Prognosis is guarded at this time. The impression and plan of care has been dictated by Ann Saenz, Nurse Practitioner as directed. Dr. Srikanth MD I have performed a history and examination and MDM of this patient, discussed the same with the dictator, and agree with the dictator's assessment and plan as written ,documented as a scribe. Based on total visit time, I have performed more than 50% of the visit. Objective - Vital Signs Vital signs: Vital Signs Temp 98.1 F 12/02/21 08:00 Pulse 82 12/02/21 08:00 Resp 17 12/02/21 08:00 BP 119/64 12/02/21 08:00 Pulse Ox 95 12/02/21 08:00 FiO2 Intake & Output 12/01/21 12/02/21 12/02/21 18:59 06:59 18:59 Intake Total 82.673 65.163 Output Total 600 250 Balance -517.327 -184.837 Weight 55 kg Intake: Intake, IV Titration 82.673 65.163 Amount Diltiazem 125 mg In 20.667 Sodium Chloride 0.9% 100 ml @ 5 MG/HR 5 mls/hr IV .Q24H [facility] Rx#:[id number] Heparin Sod,Pork in 0.45% 62.006 65.163 NaCl 25,000 unit In 0.45 % NaCl 1 250ml.bag @ 7. 408 UNITS/KG/HR 10.001 mls/hr IV .Q24H [facility] Rx#: [id number] Output: Urine 600 250 Other: Voiding Method Urinal - Labs CBC & Chem 7: 12/02/21 06:29 12/02/21 06:29 Labs: Abnormal Lab Results - Last 24 Hours (Table) 12/01/21 12/01/21 12/01/21 Range/Units 13:51 13:51 13:51 RBC 3.64 L (4.30-5.90) m/uL Hgb 11.8 L (13.0-17.5) gm/dL Hct 34.2 L (39.0-53.0) % Lymphocytes # 0.8 L (1.0-4.8) k/uL PT 12.2 H (9.0-12.0) sec INR 1.2 H (<1.2) APTT 20.7 L (22.0-30.0) sec Chloride (98-107) mmol/L BUN 38 H (9-20) mg/dL Creatinine 2.31 H (0.66-1.25) mg/dL Glucose (74-99) mg/dL Troponin I (0.000-0.034) ng/mL 12/01/21 12/01/21 12/02/21 Range/Units 19:48 19:48 06:29 RBC 3.24 L (4.30-5.90) m/uL Hgb 10.4 L (13.0-17.5) gm/dL Hct 31.0 L (39.0-53.0) % Lymphocytes # 0.9 L (1.0-4.8) k/uL PT (9.0-12.0) sec INR (<1.2) APTT 153.1 H* (22.0-30.0) sec Chloride (98-107) mmol/L BUN (9-20) mg/dL Creatinine (0.66-1.25) mg/dL Glucose (74-99) mg/dL Troponin I 0.042 H* (0.000-0.034) ng/mL 12/02/21 12/02/21 Range/Units 06:29 06:29 RBC (4.30-5.90) m/uL Hgb (13.0-17.5) gm/dL Hct (39.0-53.0) % Lymphocytes # (1.0-4.8) k/uL PT 12.8 H (9.0-12.0) sec INR 1.2 H (<1.2) APTT 76.0 H (22.0-30.0) sec Chloride 109 H (98-107) mmol/L BUN 41 H (9-20) mg/dL Creatinine 2.37 H (0.66-1.25) mg/dL Glucose 101 H (74-99) mg/dL Troponin I (0.000-0.034) ng/mL
[2021-12-02] MEDS: HEPARIN SOD,PORK IN 0.45% NACL 25,000 UNIT in 0.45% NACL 1 250ML.BAG IV SCH (17:07)
[2021-12-02] MEDS: PRAVASTATIN SODIUM 20 MG TAB PO SCH (20:15)
[2021-12-03] MEDS: LEVOTHYROXINE 50 MCG TAB PO SCH (06:50)
[2021-12-03] MEDS: HEPARIN SOD,PORK IN 0.45% NACL 25,000 UNIT in 0.45% NACL 1 250ML.BAG IV SCH (06:50)
[2021-12-03] MEDS: FENOFIBRATE 54 MG TAB PO SCH (09:46)
[2021-12-03] MEDS: PALIPERIDONE 3 MG TAB.ER.24 PO SCH (09:46)
[2021-12-03] MEDS: METOPROLOL TARTRATE 12.5 MG TAB PO SCH ×2 (09:46→21:00)
[2021-12-03] MEDS: TRIHEXYPHENIDYL 2 MG TAB PO SCH ×2 (09:46→21:00)
[2021-12-03 11:04] LABS: Basophils % (A) 0 %; Eosinophils # (A) 0.1 k/uL (0-0.7); Eosinophils % (A) 2 %; HCT 31.8 % (39.0-53.0); HGB 10.7 gm/dL (13.0-17.5); Lymphocytes # (A) 0.6 k/uL (1.0-4.8); Lymphocytes % (A) 11 %; MCH 32.3 pg (25.0-35.0); MCHC 33.8 g/dL (31.0-37.0); MCV 95.5 fL (80.0-100.0); Mean Platelet Volume 7.4; Monocytes # (A) 0.4 k/uL (0-1.0); Monocytes % (A) 7 %; Neutrophils # (A) 4.5 k/uL (1.3-7.7); Neutrophils % (A) 79 %; Platelet Count 223 k/uL (150-450); RBC 3.33 m/uL (4.30-5.90); RDW 12.7 % (11.5-15.5); WBC 5.8 k/uL (3.8-10.6)
[2021-12-03 11:19] LABS: Calcium 8.8 mg/dL (8.4-10.2); Potassium 4.1 mmol/L (3.5-5.1)
--- NOTE | 2021-12-03 12:52 | P.PN ---
Subjective Progress Note Date: 12/03/21 The patient is a 81-year-old male who presented to the hospital with chest discomfort. He was found to be in A. fib with RVR. He was started on Cardizem drip and spontaneously converted back to sinus mechanism. ACS workup was unremarkable. The patient was interviewed and examined lying comfortably in bed. He denies any recurrence of the symptoms. Overall he states he feels well. GENERAL: Well-appearing, well-nourished and in no acute distress. NECK: Supple without JVD or thyromegaly. LUNGS: Breath sounds clear to auscultation bilaterally. Respiration equal and unlabored. No wheezes, rales or rhonchi. HEART: Regular rate and rhythm without murmurs, rubs or gallops. S1 and S2 heard. EXTREMITIES: Normal range of motion, no edema. No clubbing or cyanosis. Peripheral pulses intact and strong. VITALS: Blood pressure 143/64, pulse 83, respiratory rate 18, SpO2 95% on room air, temp 97.9F TELEMETRY: Sinus rhythm overnight LABS: W BC 5.8, hemoglobin 10.7, hematocrit 31.8, platelet 223, sodium 143, potassium 4.1 Lionel BUN 32, creatinine 2.13 IMPRESSION: Paroxysmal atrial fibrillation Dyslipidemia Mild sick sinus syndrome Chronic kidney disease History of psychiatric conditions PLAN: Continue current medication regimen including low-dose beta derick Consideration for anticoagulation, however fall risk assessment needs to be considered Further recommendations to be based on clinical course I am dictating on behalf of Dr Dickson Monroy's history/physical and assessment/plan. Objective - Vital Signs Vital signs: Vital Signs Temp 97.9 F 12/03/21 11:40 Pulse 83 12/03/21 11:40 Resp 18 12/03/21 11:40 BP 143/64 12/03/21 11:40 Pulse Ox 95 12/03/21 11:40 FiO2 Intake & Output 12/02/21 12/03/21 12/03/21 18:59 06:59 18:59 Intake Total 101.051 81.536 Output Total 850 1275 Balance -748.949 -1193.464 Intake: Intake, IV Titration 101.051 81.536 Amount Heparin Sod,Pork in 0.45% 101.051 81.536 NaCl 25,000 unit In 0.45 % NaCl 1 250ml.bag @ 7. 408 UNITS/KG/HR 10.001 mls/hr IV .Q24H [facility] Rx#: [id number] Output: Urine 850 1275 Other: Voiding Method Urinal Urinal Urinal # Voids 1 # Bowel Movements 1 - Labs CBC & Chem 7: 12/03/21 10:01 12/03/21 10:01 Labs: Abnormal Lab Results - Last 24 Hours (Table) 12/02/21 12/03/21 12/03/21 Range/Units 15:32 00:51 10:01 RBC 3.33 L (4.30-5.90) m/uL Hgb 10.7 L (13.0-17.5) gm/dL Hct 31.8 L (39.0-53.0) % Lymphocytes # 0.6 L (1.0-4.8) k/uL APTT 38.2 H 52.2 H (22.0-30.0) sec Chloride (98-107) mmol/L BUN (9-20) mg/dL Creatinine (0.66-1.25) mg/dL 12/03/21 Range/Units 10:01 RBC (4.30-5.90) m/uL Hgb (13.0-17.5) gm/dL Hct (39.0-53.0) % Lymphocytes # (1.0-4.8) k/uL APTT (22.0-30.0) sec Chloride 108 H (98-107) mmol/L BUN 32 H (9-20) mg/dL Creatinine 2.13 H (0.66-1.25) mg/dL
[2021-12-03] MEDS: APIXABAN 5 MG TAB PO SCH (21:00)
[2021-12-03] MEDS: PRAVASTATIN SODIUM 20 MG TAB PO SCH (21:00)
[2021-12-04] MEDS: LEVOTHYROXINE 50 MCG TAB PO SCH (06:21)
[2021-12-04] MEDS: APIXABAN 5 MG TAB PO SCH ×2 (09:00→20:16)
[2021-12-04] MEDS: PALIPERIDONE 3 MG TAB.ER.24 PO SCH (09:00)
[2021-12-04] MEDS: METOPROLOL TARTRATE 12.5 MG TAB PO SCH ×2 (09:00→20:16)
[2021-12-04] MEDS: FENOFIBRATE 54 MG TAB PO SCH (09:00)
[2021-12-04] MEDS: TRIHEXYPHENIDYL 2 MG TAB PO SCH ×2 (09:00→20:16)
--- NOTE | 2021-12-04 12:25 | P.PN ---
Subjective Progress Note Date: 12/04/21 The patient is a 81-year-old male who presented to the hospital with chest discomfort. He was found to be in A. fib with RVR. He was started on Cardizem drip and spontaneously converted back to sinus mechanism. The patient was interviewed and examined lying comfortably in bed. He denies any recurrence of the symptoms. Overall he states he feels well. GENERAL: Well-appearing, well-nourished and in no acute distress. NECK: Supple without JVD or thyromegaly. LUNGS: Breath sounds clear to auscultation bilaterally. Respiration equal and unlabored. No wheezes, rales or rhonchi. HEART: Regular rate and rhythm without murmurs, rubs or gallops. S1 and S2 heard. EXTREMITIES: Normal range of motion, no edema. No clubbing or cyanosis. Peripheral pulses intact and strong. VITALS: Blood pressure 143/64, pulse 83, respiratory rate 18, SpO2 95% on room air, temp 97.9F TELEMETRY: Sinus rhythm overnight LABS: WBC 5.8, hemoglobin 10.7, hematocrit 31.8, platelet 223, sodium 143 IMPRESSION: Paroxysmal atrial fibrillation Dyslipidemia Mild sick sinus syndrome Chronic kidney disease History of psychiatric conditions PLAN: Continue current medication regimen including low-dose beta derick and ant icoagulation No further recommendations from the cardiac standpoint I am dictating on behalf of Dr Dickson Monroy's history/physical and assessment/plan. Objective - Vital Signs Vital signs: Vital Signs Temp 97.8 F 12/04/21 09:02 Pulse 70 12/04/21 09:02 Resp 16 12/04/21 09:02 BP 155/74 12/04/21 09:02 Pulse Ox 98 12/04/21 09:02 FiO2 Intake & Output 12/03/21 12/04/21 12/04/21 18:59 06:59 18:59 Intake Total 668 118 Output Total 500 Balance 168 118 Intake: Oral 668 118 Output: Urine 500 Other: Voiding Method Urinal Urinal Urinal # Voids 1 - Labs CBC & Chem 7: 12/03/21 10:01 12/03/21 10:01
[2021-12-04] MEDS: PRAVASTATIN SODIUM 20 MG TAB PO SCH (20:16)
[2021-12-04] MEDS: DOCUSATE 100 MG CAP PO SCH (20:16)
--- NOTE | 2021-12-04 23:20 | P.PN ---
Subjective Progress Note Date: 12/03/21 Patient is a 81-year-old male with a known history of hypertension, hyperlipidemia, history of renal mass s/p surgery, hypothyroidism and bipolar/schizophrenia was brought to the hospital due to complaints of chest pain. Patient states that he developed left retrosternal chest tightness and pain across the chest associated with shortness of breath today morning. Patient has been having symptoms of heart racing of the past on and off. Patient went to PCP for regular checkup. Patient was found to have atrial fibrillation and was sent to ER. Otherwise patient denied any headache. No dizziness or lightheadedness. No recent falls. No leg swelling. 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 Further details not known at this time. No prior cardiac catheterization history. Laboratory data showed WBC 5.4 hemoglobin 11.8 and platelets 237 INR 1.2 Sodium 141 potassium 4.3 chloride 106 BUN 38 and creatinine 2.31 Troponin 0.012, 0.027 and 0.042 Liver enzymes are not elevated EKG showed atrial fibrillation with rapid regular rate heart rate 142 Chest x-ray showed no acute cardiopulmonary process. 12/02/2021 Patient is seen and evaluated in follow-up this morning being followed by cardiology and patient has been on Cardizem drip although discontinued and patient was started on metoprolol. Patient continues on IV heparin and will need to discuss with cardiology about possible anticoagulation. Patient is a poor historian. Patient reports he lives by himself. 2-D echo was also ordered and pending at this time. Kidney functions remain elevated and recommend repeat labs in the morning. Patient is afebrile denies chest pain or shortness of breath. Patient denies any palpitations. Patient reports to tolerating diet with no reports of nausea or vomiting noted. 12/03/2021 Patient is currently lying in bed. Awake alert and oriented x3. Heart rate is controlled. Patient was started on anticoagulation with Eliquis. 2D echocardiogram showed normal ejection fraction. No complaints of fever or chills. No nausea vomiting abdominal diarrhea. No complaints of chest pain or shortness of breath. Admittedly patient is living by himself. PT OT was consulted. Cardiology is on board. Review of systems: Constitutional: No reports of fatigue, fever, or chills Cardiovascular: No reports of chest pain or palpitations Respiratory: No reports of shortness of breath or cough GI: No reports of nausea, vomiting, or diarrhea : No reports of dysuria or retention Neurovascular: No reports of weakness or numbness All medications have been reviewed Active Medications Fenofibrate (Fenofibrate 54 Mg Tab) 54 mg PO DAILY [facility] Last Admin: 12/02/21 11:17 Dose: 54 mg Heparin Sodium (Porcine) (Heparin Sodium 1,000 Un/Ml (10ml Vl)) 0 unit IV PER PROTOCOL PRN; Protocol PRN Reason: Low PTT Heparin Sodium/Sodium Chloride (25,000 unit/ Sodium Chloride) 250 mls @ 10.001 mls/hr IV .Q24H [facility]; Protocol Last Titration: 12/02/21 09:30 Dose: 2.93 units/kg/hr, 3.951 mls/hr Levothyroxine Sodium (Levothyroxine 50 Mcg Tab) 50 mcg PO DAILY@0630 [facility] Last Admin: 12/02/21 06:41 Dose: 50 mcg Metoprolol Tartrate (Metoprolol Tartrate 12.5 Mg Tab) 12.5 mg PO BID [facility] Last Admin: 12/02/21 10:22 Dose: 12.5 mg Nitroglycerin (Nitroglycerin Sl Tabs 0.4 Mg Tab) 0.4 mg SUBLINGUAL Q5M PRN PRN Reason: Chest Pain Paliperidone (Paliperidone 3 Mg Tab.Er.24) 3 mg PO DAILY [facility] Last Admin: 12/02/21 11:16 Dose: 3 mg Pravastatin Sodium (Pravastatin Sodium 20 Mg Tab) 10 mg PO HS [facility] Last Admin: 12/01/21 20:53 Dose: 10 mg Trihexyphenidyl HCl (Trihexyphenidyl 2 Mg Tab) 5 mg PO BID [facility] Last Admin: 12/02/21 10:22 Dose: 5 mg PHYSICAL EXAMINATION: Patient is lying in the bed comfortably, no acute distress, awake alert and oriented. Able to communicate slowly.. HEENT: Normocephalic. Neck is supple. Pupils reactive. Nostrils clear. Oral cavity is moist. Neck reveals no JVD, carotid bruits, or thyromegaly. CHEST EXAMINATION: Trachea is central. Symmetrical expansion. Lung ingram clear to auscultation and percussion. CARDIAC: Normal S1, S2 with no gallops. No murmurs. Irregular Seelig rhythm. ABDOMEN: Soft. Bowel sounds present. Nontender. No organomegaly. No abdominal bruits. Extremities: reveal no edema. No clubbing or cyanosis Neurologically awake, alert, oriented x3 with well-coordinated movements. No gross focal deficits noted. Able to move all his extremities while in bed. Skin: No rash or skin lesions. Psychiatric: Cooperative. Non-suicidal, Musculoskeletal: No joint swelling or deformity. Assessment: New onset atrial fibrillation with RVR Chest tightness and shortness of breath. Resolved Elevated troponin level. Possible NSTEMI cannot be excluded. No prior history of cardiac catheterization. Acute kidney injury with creatinine level 2.31 with possible underlying CKD stage III. Baseline creatinine not known Hypertension Hypothyroidism Hyperlipidemia History of renal mass status post surgery several years ago Bipolar/schizophrenia Osteoarthritis DVT prophylaxis patient is already on heparin drip Plan: Patient will be continued on telemetry monitoring. Monitor serial EKG and troponin x3. 2-D echo shows normal LV size with no obvious regional wall motion abnormalities and EF is estimated at 50-55%. Mild mitral regurgitation.. Cardiology following and Cardizem drip was discontinued and patient was started on metoprolol. Patient was started on anticoagulation with Eliquis. Patient is not medically clear at this time and cardiology recommending closely observing on telemetry monitoring with follow-up in the a.m. Will follow-up with labs and continue to monitor closely. Prognosis is guarded at this time. Objective - Vital Signs Vital signs: Vital Signs Temp 97.9 F 12/03/21 11:40 Pulse 83 12/03/21 11:40 Resp 18 12/03/21 11:40 BP 143/64 12/03/21 11:40 Pulse Ox 95 12/03/21 11:40 FiO2 Intake & Output 12/02/21 12/03/21 12/03/21 18:59 06:59 18:59 Intake Total 101.051 81.536 Output Total 850 1275 Balance -748.949 -1193.464 Intake: Intake, IV Titration 101.051 81.536 Amount Heparin Sod,Pork in 0.45% 101.051 81.536 NaCl 25,000 unit In 0.45 % NaCl 1 250ml.bag @ 7. 408 UNITS/KG/HR 10.001 mls/hr IV .Q24H [facility] Rx#: [id number] Output: Urine 850 1275 Other: Voiding Method Urinal Urinal Urinal # Voids 1 # Bowel Movements 1 - Labs CBC & Chem 7: 12/03/21 10:01 12/03/21 10:01 Labs: Abnormal Lab Results - Last 24 Hours (Table) 12/02/21 12/03/21 12/03/21 Range/Units 15:32 00:51 10:01 RBC 3.33 L (4.30-5.90) m/uL Hgb 10.7 L (13.0-17.5) gm/dL Hct 31.8 L (39.0-53.0) % Lymphocytes # 0.6 L (1.0-4.8) k/uL APTT 38.2 H 52.2 H (22.0-30.0) sec Chloride (98-107) mmol/L BUN (9-20) mg/dL Creatinine (0.66-1.25) mg/dL 12/03/21 Range/Units 10:01 RBC (4.30-5.90) m/uL Hgb (13.0-17.5) gm/dL Hct (39.0-53.0) % Lymphocytes # (1.0-4.8) k/uL APTT (22.0-30.0) sec Chloride 108 H (98-107) mmol/L BUN 32 H (9-20) mg/dL Creatinine 2.13 H (0.66-1.25) mg/dL
--- NOTE | 2021-12-04 23:23 | P.PN ---
Subjective Progress Note Date: 12/04/21 Patient is a 81-year-old male with a known history of hypertension, hyperlipidemia, history of renal mass s/p surgery, hypothyroidism and bipolar/schizophrenia was brought to the hospital due to complaints of chest pain. Patient states that he developed left retrosternal chest tightness and pain across the chest associated with shortness of breath today morning. Patient has been having symptoms of heart racing of the past on and off. Patient went to PCP for regular checkup. Patient was found to have atrial fibrillation and was sent to ER. Otherwise patient denied any headache. No dizziness or lightheadedness. No recent falls. No leg swelling. 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 Further details not known at this time. No prior cardiac catheterization history. Laboratory data showed WBC 5.4 hemoglobin 11.8 and platelets 237 INR 1.2 Sodium 141 potassium 4.3 chloride 106 BUN 38 and creatinine 2.31 Troponin 0.012, 0.027 and 0.042 Liver enzymes are not elevated EKG showed atrial fibrillation with rapid regular rate heart rate 142 Chest x-ray showed no acute cardiopulmonary process. 12/02/2021 Patient is seen and evaluated in follow-up this morning being followed by cardiology and patient has been on Cardizem drip although discontinued and patient was started on metoprolol. Patient continues on IV heparin and will need to discuss with cardiology about possible anticoagulation. Patient is a poor historian. Patient reports he lives by himself. 2-D echo was also ordered and pending at this time. Kidney functions remain elevated and recommend repeat labs in the morning. Patient is afebrile denies chest pain or shortness of breath. Patient denies any palpitations. Patient reports to tolerating diet with no reports of nausea or vomiting noted. 12/03/2021 Patient is currently lying in bed. Awake alert and oriented x3. Heart rate is controlled. Patient was started on anticoagulation with Eliquis. 2D echocardiogram showed normal ejection fraction. No complaints of fever or chills. No nausea vomiting abdominal diarrhea. No complaints of chest pain or shortness of breath. Admittedly patient is living by himself. PT OT was consulted. Cardiology is on board. 12/04/2021 Patient is currently sitting on the side of the bed. No acute overnight issues. Heart rate is controlled. Patient is being current on metoprolol and anticoagulated with Eliquis. PT OT will be consulted and possible discharge to rehab versus home with home PT. Laboratory data reviewed. Review of systems: Constitutional: No reports of fatigue, fever, or chills Cardiovascular: No reports of chest pain or palpitations Respiratory: No reports of shortness of breath or cough GI: No reports of nausea, vomiting, or diarrhea : No reports of dysuria or retention Neurovascular: No reports of weakness or numbness All medications have been reviewed Active Medications Fenofibrate (Fenofibrate 54 Mg Tab) 54 mg PO DAILY [facility] Last Admin: 12/02/21 11:17 Dose: 54 mg Heparin Sodium (Porcine) (Heparin Sodium 1,000 Un/Ml (10ml Vl)) 0 unit IV PER PROTOCOL PRN; Protocol PRN Reason: Low PTT Heparin Sodium/Sodium Chloride (25,000 unit/ Sodium Chloride) 250 mls @ 10.001 mls/hr IV .Q24H [facility]; Protocol Last Titration: 12/02/21 09:30 Dose: 2.93 units/kg/hr, 3.951 mls/hr Levothyroxine Sodium (Levothyroxine 50 Mcg Tab) 50 mcg PO DAILY@0630 [facility] Last Admin: 12/02/21 06:41 Dose: 50 mcg Metoprolol Tartrate (Metoprolol Tartrate 12.5 Mg Tab) 12.5 mg PO BID [facility] Last Admin: 12/02/21 10:22 Dose: 12.5 mg Nitroglycerin (Nitroglycerin Sl Tabs 0.4 Mg Tab) 0.4 mg SUBLINGUAL Q5M PRN PRN Reason: Chest Pain Paliperidone (Paliperidone 3 Mg Tab.Er.24) 3 mg PO DAILY [facility] Last Admin: 12/02/21 11:16 Dose: 3 mg Pravastatin Sodium (Pravastatin Sodium 20 Mg Tab) 10 mg PO HS [facility] Last Admin: 12/01/21 20:53 Dose: 10 mg Trihexyphenidyl HCl (Trihexyphenidyl 2 Mg Tab) 5 mg PO BID [facility] Last Admin: 12/02/21 10:22 Dose: 5 mg PHYSICAL EXAMINATION: Patient is lying in the bed comfortably, no acute distress, awake alert and oriented. Able to communicate slowly.. HEENT: Normocephalic. Neck is supple. Pupils reactive. Nostrils clear. Oral cavity is moist. Neck reveals no JVD, carotid bruits, or thyromegaly. CHEST EXAMINATION: Trachea is central. Symmetrical expansion. Lung ingram clear to auscultation and percussion. CARDIAC: Normal S1, S2 with no gallops. No murmurs. Irregular Seelig rhythm. ABDOMEN: Soft. Bowel sounds present. Nontender. No organomegaly. No abdominal bruits. Extremities: reveal no edema. No clubbing or cyanosis Neurologically awake, alert, oriented x3 with well-coordinated movements. No gross focal deficits noted. Able to move all his extremities while in bed. Skin: No rash or skin lesions. Psychiatric: Cooperative. Non-suicidal, Musculoskeletal: No joint swelling or deformity. Assessment: New onset atrial fibrillation with RVR Chest tightness and shortness of breath. Resolved Elevated troponin level. Likely demand ischemia. 2D echo showed normal EF. . No prior history of cardiac catheterization. Acute kidney injury with creatinine level 2.31 with possible underlying CKD stage III. Baseline creatinine not known Hypertension Hypothyroidism Hyperlipidemia History of renal mass status post surgery several years ago Bipolar/schizophrenia Osteoarthritis DVT prophylaxis patient is already on heparin drip Plan: Patient will be continued on telemetry monitoring. Monitor serial EKG and troponin x3. 2-D echo shows normal LV size with no obvious regional wall motion abnormalities and EF is estimated at 50-55%. Mild mitral regurgitation.. Cardiology following and Cardizem drip was discontinued and patient was started on metoprolol. Patient was started on anticoagulation with Eliquis. Will follow-up with labs and continue to monitor closely. Prognosis is guarded at this time. Anticipate discharge in next 24 hours. Objective - Vital Signs Vital signs: Vital Signs Temp 98.3 F 12/04/21 15:59 Pulse 79 12/04/21 15:59 Resp 18 12/04/21 15:59 BP 149/73 12/04/21 15:59 Pulse Ox 97 12/04/21 15:59 FiO2 Intake & Output 12/03/21 12/04/21 12/04/21 18:59 06:59 18:59 Intake Total 668 236 Output Total 500 Balance 168 236 Intake: Oral 668 236 Output: Urine 500 Other: Voiding Method Urinal Urinal Urinal # Voids 1 - Labs CBC & Chem 7: 12/03/21 10:01 12/03/21 10:01
[2021-12-05] MEDS: LEVOTHYROXINE 50 MCG TAB PO SCH (06:14)
[2021-12-05] MEDS: FENOFIBRATE 54 MG TAB PO SCH (09:16)
[2021-12-05] MEDS: TRIHEXYPHENIDYL 2 MG TAB PO SCH ×2 (09:16→22:01)
[2021-12-05] MEDS: DOCUSATE 100 MG CAP PO SCH ×2 (09:17→20:40)
[2021-12-05] MEDS: METOPROLOL TARTRATE 12.5 MG TAB PO SCH ×2 (09:17→20:40)
[2021-12-05] MEDS: PALIPERIDONE 3 MG TAB.ER.24 PO SCH (09:17)
[2021-12-05] MEDS: APIXABAN 5 MG TAB PO SCH ×2 (09:17→20:40)
[2021-12-05 09:34] LABS: Basophils % (A) 1 %; Eosinophils # (A) 0.2 k/uL (0-0.7); Eosinophils % (A) 4 %; HCT 32.4 % (39.0-53.0); HGB 10.8 gm/dL (13.0-17.5); Lymphocytes # (A) 0.7 k/uL (1.0-4.8); Lymphocytes % (A) 13 %; MCHC 33.4 g/dL (31.0-37.0); MCV 95.9 fL (80.0-100.0); Mean Platelet Volume 7.9; Monocytes # (A) 0.3 k/uL (0-1.0); Monocytes % (A) 5 %; Neutrophils # (A) 4.2 k/uL (1.3-7.7); Neutrophils % (A) 75 %; Platelet Count 243 k/uL (150-450); RBC 3.37 m/uL (4.30-5.90); WBC 5.5 k/uL (3.8-10.6)
[2021-12-05 09:46] LABS: Calcium 9.3 mg/dL (8.4-10.2); Potassium 4.5 mmol/L (3.5-5.1)
--- NOTE | 2021-12-05 14:27 | P.DS ---
Providers Date of admission: 12/01/21 14:04 Expected date of discharge: 12/05/21 Attending physician: Rey Duke Primary care physician: Stated None Hospital Course: Final diagnosis New onset atrial fibrillation with RVR Chest tightness and shortness of breath. Resolved Elevated troponin level. Likely demand ischemia. 2D echo showed normal EF. . No prior history of cardiac catheterization. Acute kidney injury with creatinine level 2.31 with possible underlying CKD stage III. Baseline creatinine not known Hypertension Hypothyroidism Hyperlipidemia History of renal mass status post surgery several years ago Bipolar/schizophrenia Osteoarthritis DVT prophylaxis Discharge disposition Patient is being discharged in a stable condition with guarded prognosis to [facility]. Patient will follow-up with his PCP out of [place] in the outpatient setting upon discharge. Patient is to follow-up with cardiology as scheduled. Total time taken is greater than 35 minutes. Hospital course This is a 81-year-old male who was recently admitted with atrial fibrillation with RVR new-onset along with some chest pain and was being closely monitored. Patient was evaluated and followed by cardiology and initiated on IV heparin. Patient has been started on anticoagulation and also low-dose metoprolol. 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 Patient also with weakness and evaluated by PT/OT therapy recommending ECF and patient is agreeable. Patient will be going to [facility] today. Currently no reports of chest pain, shortness of breath, or palpitations. Patient is afebrile. No reports of nausea or vomiting and patient is tolerating diet. Patient will be going to [facility] today. Recommend repeat labs to monitor kidney functions. Guarded prognosis Physical exam: Gen: This is a 81-year-old male awake, alert and oriented 2-3, thin built HEENT: Head is atraumatic, normocephalic. Pupils equal, round. Sclerae is anicteric. NECK: Supple. No JVD. No lymphadenopathy. No thyromegaly. LUNGS: Diminished breath sounds bilaterally with no wheezes or rhonchi. No intercostal retractions. HEART: S1, S2 are muffled ABDOMEN: Soft. Bowel sounds are present. No masses. No tenderness. EXTREMITIES: No pedal edema. No calf tenderness. NEUROLOGICAL: Patient is awake, alert and oriented x3. Cranial nerves 2 through 12 are grossly intact. Diffusely weak Please refer to medication reconciliation sheet for a list of medications. The impression and plan of care has been dictated by Ann Saenz, Nurse Practitioner as directed. Dr. Abe MD I have performed a history and examination and MDM of this patient, discussed the same with the dictator, and agree with the dictator's assessment and plan as written ,documented as a scribe. Based on total visit time, I have performed more than 50% of the visit. Patient Condition at Discharge: Fair Plan - Discharge Summary Discharge Rx Participant: Yes New Discharge Prescriptions: New Docusate [Colace] 100 mg PO BID cap Metoprolol Tartrate [Lopressor] 12.5 mg PO BID tab Apixaban [Eliquis] 5 mg PO BID tab Continue Pravastatin Sodium [Pravachol] 10 mg PO HS Levothyroxine Sodium [Synthroid] 50 mcg PO DAILY Fenofibrate Nanocrystallized [Tricor] 48 mg PO DAILY Trihexyphenidyl HCl 5 mg PO BID Paliperidone [Invega] 3 mg PO DAILY Paliperidone IM [Invega Sustenna] 234 mg IM QMONTHLY Discharge Medication List Fenofibrate Nanocrystallized [Tricor] 48 mg PO DAILY 07/20/17 [History] Levothyroxine Sodium [Synthroid] 50 mcg PO DAILY 07/20/17 [History] Pravastatin Sodium [Pravachol] 10 mg PO HS 07/20/17 [History] Trihexyphenidyl HCl 5 mg PO BID 07/20/17 [History] Paliperidone IM [Invega Sustenna] 234 mg IM QMONTHLY 12/01/21 [History] Paliperidone [Invega] 3 mg PO DAILY 12/01/21 [History] Apixaban [Eliquis] 5 mg PO BID tab 12/05/21 [Rx] Docusate [Colace] 100 mg PO BID cap 12/05/21 [Rx] Metoprolol Tartrate [Lopressor] 12.5 mg PO BID tab 12/05/21 [Rx] Follow up Appointment(s)/Referral(s): None,Stated [Primary Care Provider] - 1-2 days Activity/Diet/Wound Care/Special Instructions: Patient is going to [facility] Activity as tolerated Follow-up with primary care provider on discharge Follow-up with cardiology outpatient Continue taking medications as prescribed Continue current diet heart healthy Discharge Disposition: TRANSFER TO SNF/ECF
[2021-12-05] MEDS: PRAVASTATIN SODIUM 20 MG TAB PO SCH (20:40)
[2021-12-06] MEDS: LEVOTHYROXINE 50 MCG TAB PO SCH (06:35)
[2021-12-06 09:18] VITALS: BMI 20.1
[2021-12-06] MEDS: TRIHEXYPHENIDYL 2 MG TAB PO SCH (09:34)
[2021-12-06] MEDS: METOPROLOL TARTRATE 12.5 MG TAB PO SCH (09:34)
[2021-12-06] MEDS: FENOFIBRATE 54 MG TAB PO SCH (09:35)
[2021-12-06] MEDS: DOCUSATE 100 MG CAP PO SCH (09:35)
[2021-12-06] MEDS: PALIPERIDONE 3 MG TAB.ER.24 PO SCH (09:35)
[2021-12-06] MEDS: APIXABAN 5 MG TAB PO SCH (09:35)
[2021-12-06 09:55] VITALS: RESP 18
--- NOTE | 2021-12-06 12:06 | CDI ---
Documentation Clarification Form Date: 12/06/2021 11:55:42 AM From: Fani Mata CCS, CCDS Admit Date: 12/01/2021 02:04:00 PM Patient Name: Martín Nixon Visit Number: [id number] Discharge Date: ATTENTION: The Clinical Documentation Specialists (CDI) and [facility] Coding Staff appreciate your assistance in clarifying documentation. Please respond to the clarification below the line at the bottom and electronically sign. The CDI & [facility] Coding staff will review the response and follow-up if needed. Please note: Queries are made part of the Legal Health Record. If you have any questions, please contact the author of this message via ITS. Dr. Betty Fish: Per the 12/01 History & Physical and the subsequent attending physician Progress Notes on 12/02 and 12/03, possible NSTEMI cannot be excluded. Per the 12/04 attending physician Progress Note and the 12/05 Discharge Summary: Elevated troponins, likely demand ischemia. Additional clarification regarding the type of NH is requested. History/Risk Factors per the 12/01 H/P: Hypertension, Hyperlipidemia, Bipolar/Schizophrenia, Pneumonia, CKD III, Hypothyroid, Tremors, Osteoarthritis, Hard of Hearing. Clinical Indicators: Presented to the ED on 12/01 via EMS with Chest Pain and new onset Atrial Fibrillation. Admit with Atrial Fibrillation with RVR. 12/01 VS: T 97.9, P 158, 89; R 18, BP 138/93, PO 96 RA, BMI: 20.2 12/01 LAB: PT 12.2, INR 1.2, APTT 20.7, 153.1; Troponin <0.012, 0.042. 12/01 EKG: R 143 Atrial fibrillation w/RVR, RBBB. Repeat: R 64 sinus rhythm, Possible right ventricular conduction delay. 12/02 EKG: R 62 sinus rhythm, RBBB. Treatment 12/01: Telemetry, Heparin drip, O2, po Aspirin 324 mg x1, IV Cardizem Drip bolus 10 mg x1, IV Cardizem 125 mls @ 5 mls/hr q24H, Nitro sl 0.4 mg q5M/prn. Please clarify the type of NH, if known: [ ] NSTEMI (type 1) [ ] Type II NH due to (please specify etiology) [ ] Infarction ruled out [ ] Unable to determine [ ] Other Condition, please specify (Template Last Revised: April 2020) Type II NH MTDD
[2021-12-06 12:11] VITALS: BP 130/71; PULSE 79; TEMP 97.9
--- NOTE | 2021-12-06 12:37 | P.DS ---
Providers Date of admission: 12/01/21 14:04 Expected date of discharge: 12/06/21 Attending physician: Rey Duke Primary care physician: Stated None Hospital Course: Final diagnosis New onset atrial fibrillation with RVR Chest tightness and shortness of breath. Resolved Elevated troponin level. Likely demand ischemia. With type II NH secondary to A. fib RVR. 2D echo showed normal EF. . No prior history of cardiac catheterization. Acute kidney injury with creatinine level 2.31 with possible underlying CKD stage III. Baseline creatinine not known Hypertension Hypothyroidism Hyperlipidemia History of renal mass status post surgery several years ago Bipolar/schizophrenia Osteoarthritis DVT prophylaxis Discharge disposition Patient is being discharged in a stable condition with guarded prognosis to [facility]. Patient will follow-up with his PCP out of [place] in the outpatient setting upon discharge. Patient is to follow-up with cardiology as scheduled. Total time taken is greater than 35 minutes. Hospital course This is a 81-year-old male who was recently admitted with atrial fibrillation with RVR new-onset along with some chest pain and was being closely monitored. Patient was evaluated and followed by cardiology and initiated on IV heparin. Patient has been started on anticoagulation and also low-dose metoprolol. 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 Patient also with weakness and evaluated by PT/OT therapy recommending ECF and patient is agreeable. Patient will be going to [facility] today. Currently no reports of chest pain, shortness of breath, or palpitations. Patient is afebrile. No reports of nausea or vomiting and patient is tolerating diet. Patient will be going to [facility] today. Recommend repeat labs to monitor kidney functions. Guarded prognosis Physical exam: Gen: This is a 81-year-old male awake, alert and oriented 2-3, thin built. Temp is 97.9F, pulse is 79, respirations are 18, blood pressure is 130/71, oxygen saturation is 97% on room air. HEENT: Head is atraumatic, normocephalic. Pupils equal, round. Sclerae is anicteric. NECK: Supple. No JVD. No lymphadenopathy. No thyromegaly. LUNGS: Diminished breath sounds bilaterally with no wheezes or rhonchi. No intercostal retractions. HEART: S1, S2 are muffled ABDOMEN: Soft. Bowel sounds are present. No masses. No tenderness. EXTREMITIES: No pedal edema. No calf tenderness. NEUROLOGICAL: Patient is awake, alert and oriented x3. Cranial nerves 2 through 12 are grossly intact. Diffusely weak Please refer to medication reconciliation sheet for a list of medications. The impression and plan of care has been dictated by Ann Saenz, Nurse Practitioner as directed. Dr. Abe MD I have performed a history and examination and MDM of this patient, discussed the same with the dictator, and agree with the dictator's assessment and plan as written ,documented as a scribe. Based on total visit time, I have performed more than 50% of the visit. Patient Condition at Discharge: Fair Plan - Discharge Summary Discharge Rx Participant: Yes New Discharge Prescriptions: New Docusate [Colace] 100 mg PO BID cap Metoprolol Tartrate [Lopressor] 12.5 mg PO BID tab Apixaban [Eliquis] 5 mg PO BID tab Continue Pravastatin Sodium [Pravachol] 10 mg PO HS Levothyroxine Sodium [Synthroid] 50 mcg PO DAILY Fenofibrate Nanocrystallized [Tricor] 48 mg PO DAILY Trihexyphenidyl HCl 5 mg PO BID Paliperidone [Invega] 3 mg PO DAILY Discontinued Paliperidone IM [Invega Sustenna] 234 mg IM QMONTHLY Discharge Medication List Fenofibrate Nanocrystallized [Tricor] 48 mg PO DAILY 07/20/17 [History] Levothyroxine Sodium [Synthroid] 50 mcg PO DAILY 07/20/17 [History] Pravastatin Sodium [Pravachol] 10 mg PO HS 07/20/17 [History] Trihexyphenidyl HCl 5 mg PO BID 07/20/17 [History] Paliperidone [Invega] 3 mg PO DAILY 12/01/21 [History] Apixaban [Eliquis] 5 mg PO BID tab 12/05/21 [Rx] Docusate [Colace] 100 mg PO BID cap 12/05/21 [Rx] Metoprolol Tartrate [Lopressor] 12.5 mg PO BID tab 12/05/21 [Rx] Follow up Appointment(s)/Referral(s): None,Stated [Primary Care Provider] - 1-2 days Ambulatory/Diagnostic Orders: Basic Metabolic Panel [LAB.AMB] Time Frame: 3 Days, Location: None Selected Activity/Diet/Wound Care/Special Instructions: Patient is going to ECF Activity as tolerated Follow-up with primary care provider on discharge Follow-up with cardiology outpatient Continue taking medications as prescribed Continue current diet heart healthy Discharge Disposition: TRANSFER TO SNF/ECF
== END 2021-12-06 15:35 | DRG 281 ==
LOC: EC 13:29 → 3SCARD 14:04
PROVIDERS: ADMIT Internal Medicine; ATTEND Internal Medicine
DX: I48.0 Paroxysmal atrial fibrillation (principal); I21.A1 Myocardial infarction type 2; N17.9 Acute kidney failure, unspecified; I12.9 Hypertensive chronic kidney disease with stage 1 through stage 4 chronic kidney disease, or unspecified chronic kidney disease; E03.9 Hypothyroidism, unspecified; F20.9 Schizophrenia, unspecified; F31.9 Bipolar disorder, unspecified; N18.30 Chronic kidney disease, stage 3 unspecified; I34.0 Nonrheumatic mitral (valve) insufficiency; I49.5 Sick sinus syndrome; E78.5 Hyperlipidemia, unspecified; E78.1 Pure hyperglyceridemia; I45.10 Unspecified right bundle-branch block; M19.90 Unspecified osteoarthritis, unspecified site; R53.1 Weakness; Z79.890 Hormone replacement therapy; Z28.310 Unvaccinated for COVID-19; Z79.899 Other long term (current) drug therapy
CPT/HCPCS: 36415; 71046; 80048; 80053; 80061; 83721; 83735; 84443; 84484; 85025; 85610; 85730; 93005; 93306; 96365; 96375; 99285